=== PATIENT | male | born 1940 | race Caucasian/White ===

== ENCOUNTER → 2023-06-21 10:27 | Outpatient (REF) | payer MEDICARE, OTHER, SELFPAY ==
[2023-06-21 12:45] LABS: PSA, Total - Diagnostic 5.78 ng/ml (0.0-4.0)
== END ==
LOC: REG 10:27
PROVIDERS: ATTENDING PHYSICIAN Internal Medicine Geriatric Medicine
DX: J44.1 Chronic obstructive pulmonary disease with (acute) exacerbation (principal); J98.01 Acute bronchospasm; I48.91 Unspecified atrial fibrillation; J32.0 Chronic maxillary sinusitis; M10.9 Gout, unspecified; Z91.81 History of falling; R10.13 Epigastric pain; Z13.89 Encounter for screening for other disorder; R10.31 Right lower quadrant pain; I95.1 Orthostatic hypotension; R97.20 Elevated prostate specific antigen [PSA]
CPT/HCPCS: 36415; 84153

== ENCOUNTER → 2023-07-18 09:31 | Outpatient (REF) | payer MEDICARE, OTHER, SELFPAY | LOC: RAD 09:31 | PROVIDERS: ATTENDING PHYSICIAN Internal Medicine Geriatric Medicine | DX: R60.9 Edema, unspecified (principal); J44.1 Chronic obstructive pulmonary disease with (acute) exacerbation; J98.01 Acute bronchospasm; I48.91 Unspecified atrial fibrillation; J32.0 Chronic maxillary sinusitis; M10.9 Gout, unspecified; Z91.81 History of falling; R10.13 Epigastric pain; Z13.89 Encounter for screening for other disorder; R10.31 Right lower quadrant pain; I95.1 Orthostatic hypotension; R97.20 Elevated prostate specific antigen [PSA] | CPT/HCPCS: 93970 ==

== ENCOUNTER → 2023-08-28 09:26 | Outpatient (REF) | payer MEDICARE, OTHER, SELFPAY ==
[2023-08-28 10:07] LABS: % Basophils 0.6 % (0-2); % Eosinophils 2.5 % (0-6); % Immature Granulocytes 0.4 % (0-0.5); % Monocytes 9.5 % (1.7-9.3); Absolute Basophils 0.1 10^3/uL (0-0.2); Absolute Eosinophils 0.2 10^3/uL (0-0.7); Absolute Lymphocytes 1.2 10^3/uL (1.2-3.4); Absolute Monocytes 0.8 10^3/uL (0.1-0.6); Absolute Neutrophils 5.7 10^3/uL (1.4-6.5); Hematocrit 42.6 % (39.0-52.0); Hemoglobin 14.3 g/dL (13.0-18.0); Mean Corp Hgb Conc. 33.6 g/dL (33.0-37.0); Mean Corpuscular Hgb 31.1 pg (27.0-31.0); Mean Corpuscular Volume 92.6 fL (80.0-94.0); Mean Platelet Volume 10.1 fL (7.4-10.4); Nucleated Red Blood Cells % 0 % (-); Platelet Count 218 10^3/uL (130-400); Red Cell Dist. Width 15.5 % (11.5-14.5); White Blood Cell Count 7.9 10^3/uL (4.8-10.8)
[2023-08-28 10:23] LABS: NT-proBNP 234 pg/ml
[2023-08-28 11:04] LABS: ALT (SGPT) 38 U/L (0-50); AST (SGOT) 29 U/L (17-59); Albumin 3.9 g/dl (3.5-5.0); Alkaline Phosphatase 89 U/L (38-126); Blood Urea Nitrogen 22 mg/dl (9-20); Calcium 9.1 mg/dl (8.4-10.2); Carbon Dioxide 24 mmol/L (22-30); Chloride 106 mmol/L (98-107); Glucose 102 mg/dl (70-99); Potassium 4.5 mmol/L (3.5-5.1); Sodium 139 mmol/L (135-145); Total Bilirubin 0.7 mg/dl (0.2-1.3); Total Protein 6.1 g/dl (6.3-8.2); eGFR > 60.00
== END ==
LOC: REG 09:26
PROVIDERS: ATTENDING PHYSICIAN Internal Medicine Geriatric Medicine
DX: R60.0 Localized edema (principal)
CPT/HCPCS: 36415; 71046; 80053; 83880; 85025

== ENCOUNTER → 2023-09-05 08:27 | Outpatient (REF) | payer MEDICARE, OTHER, SELFPAY | LOC: RAD 08:27 | PROVIDERS: ATTENDING PHYSICIAN Internal Medicine Geriatric Medicine | DX: Z91.81 History of falling (principal); M79.10 Myalgia, unspecified site; J44.1 Chronic obstructive pulmonary disease with (acute) exacerbation; J98.01 Acute bronchospasm; I48.91 Unspecified atrial fibrillation; J32.0 Chronic maxillary sinusitis; M10.9 Gout, unspecified; R10.13 Epigastric pain; R10.31 Right lower quadrant pain; I95.1 Orthostatic hypotension; R97.20 Elevated prostate specific antigen [PSA]; R60.9 Edema, unspecified; Z13.89 Encounter for screening for other disorder; M54.50 Low back pain, unspecified | CPT/HCPCS: 72110 ==

== ENCOUNTER → 2023-09-14 09:28 | Outpatient (REF) | payer MEDICARE, OTHER, SELFPAY | LOC: RCS 09:28 | PROVIDERS: ATTENDING PHYSICIAN Internal Medicine Geriatric Medicine | DX: R60.0 Localized edema (principal) | CPT/HCPCS: 93306 ==

== ENCOUNTER → 2023-09-20 07:43 | Outpatient (REF) | payer MEDICARE, OTHER, SELFPAY | LOC: PAVMRI 07:43 | PROVIDERS: ATTENDING PHYSICIAN Internal Medicine Geriatric Medicine | DX: M51.36 Other intervertebral disc degeneration, lumbar region (principal); M54.50 Low back pain, unspecified | CPT/HCPCS: 72148 ==

== ENCOUNTER → 2024-01-28 06:45 | Outpatient (REF) | payer MEDICARE, OTHER, SELFPAY ==
[2024-01-28 07:39] LABS: % Basophils 0.5 % (0-2); % Eosinophils 1.3 % (0-6); % Immature Granulocytes 0.8 % (0-0.5); % Lymphocytes 11.8 % (20.5-51.1); % Monocytes 4.1 % (1.7-9.3); % Neutrophils 81.5 % (42.2-75.2); Absolute Basophils 0.1 10^3/uL (0-0.2); Absolute Eosinophils 0.1 10^3/uL (0-0.7); Absolute Immature Granulocytes 0.1 10^3/uL (0-0.05); Absolute Lymphocytes 1.1 10^3/uL (1.2-3.4); Absolute Monocytes 0.4 10^3/uL (0.1-0.6); Absolute Neutrophils 7.4 10^3/uL (1.4-6.5); Hematocrit 50.7 % (39.0-52.0); Mean Corp Hgb Conc. 33.5 g/dL (33.0-37.0); Mean Corpuscular Hgb 31.8 pg (27.0-31.0); Mean Corpuscular Volume 94.8 fL (80.0-94.0); Mean Platelet Volume 10.2 fL (7.4-10.4); Nucleated Red Blood Cells % 0 % (-); Platelet Count 195 10^3/uL (130-400); Red Blood Cell Count 5.35 10^6/uL (4.70-6.10); Red Cell Dist. Width 14.9 % (11.5-14.5); White Blood Cell Count 9.1 10^3/uL (4.8-10.8)
[2024-01-28 08:06] LABS: ALT (SGPT) 118 U/L (0-50); AST (SGOT) 54 U/L (17-59); Albumin 4.1 g/dl (3.5-5.0); Alkaline Phosphatase 75 U/L (38-126); Blood Urea Nitrogen 23 mg/dl (9-20); Calcium 9.3 mg/dl (8.4-10.2); Carbon Dioxide 28 mmol/L (22-30); Chloride 107 mmol/L (98-107); Glucose 129 mg/dl (70-99); HDL Cholesterol 66 mg/dl; LDL Cholesterol, Calculated 55 mg/dl; Potassium 4.4 mmol/L (3.5-5.1); Sodium 143 mmol/L (135-145); Total Bilirubin 0.5 mg/dl (0.2-1.3); Total Cholesterol 129 mg/dl (50-199); Total Protein 6.5 g/dl (6.3-8.2); Triglyceride 42 mg/dl (10-149); Very Low Density Lipoprotein 8 mg/dl (0-30); eGFR > 60.00
== END ==
LOC: REG 06:45
PROVIDERS: ATTENDING PHYSICIAN Internal Medicine Geriatric Medicine
DX: J44.1 Chronic obstructive pulmonary disease with (acute) exacerbation (principal); Z91.81 History of falling; M79.10 Myalgia, unspecified site; J98.01 Acute bronchospasm; I48.91 Unspecified atrial fibrillation; J32.0 Chronic maxillary sinusitis; M10.9 Gout, unspecified; R10.31 Right lower quadrant pain; I95.1 Orthostatic hypotension; Z13.89 Encounter for screening for other disorder; R97.20 Elevated prostate specific antigen [PSA]; R60.9 Edema, unspecified; M54.50 Low back pain, unspecified; E78.2 Mixed hyperlipidemia; C61 Malignant neoplasm of prostate
CPT/HCPCS: 36415; 80053; 80061; 84153; 85025

== ENCOUNTER → 2024-02-08 07:05 | Outpatient (REF) | payer MEDICARE, OTHER, SELFPAY ==
[2024-02-08 08:40] LABS: ALT (SGPT) 120 U/L (0-50); AST (SGOT) 70 U/L (17-59); GGTP 22 U/L (15-73)
== END ==
LOC: REG 07:05
PROVIDERS: ATTENDING PHYSICIAN Internal Medicine Geriatric Medicine
DX: R74.8 Abnormal levels of other serum enzymes (principal)
CPT/HCPCS: 36415; 82977; 84450; 84460

== ENCOUNTER → 2024-02-25 16:11 | Outpatient (REF) | payer MEDICARE, OTHER, SELFPAY ==
[2024-02-25 17:45] LABS: ALT (SGPT) 77 U/L (0-50); AST (SGOT) 34 U/L (17-59); GGTP 21 U/L (15-73)
== END ==
LOC: RAD 16:11
PROVIDERS: ATTENDING PHYSICIAN Internal Medicine Geriatric Medicine
DX: R74.8 Abnormal levels of other serum enzymes (principal)
CPT/HCPCS: 36415; 76700; 82977; 84450; 84460

== ENCOUNTER → 2024-06-05 06:27 | Outpatient (REF) | payer MEDICARE, OTHER, SELFPAY ==
[2024-06-05 08:01] LABS: ALT (SGPT) 47 U/L (0-50); AST (SGOT) 26 U/L (17-59); Albumin 3.6 g/dl (3.5-5.0); Alkaline Phosphatase 63 U/L (38-126); Blood Urea Nitrogen 22 mg/dl (9-20); Calcium 9.5 mg/dl (8.4-10.2); Carbon Dioxide 31 mmol/L (22-30); Chloride 106 mmol/L (98-107); GGTP 19 U/L (15-73); Glucose 120 mg/dl (70-99); Potassium 4.6 mmol/L (3.5-5.1); Sodium 143 mmol/L (135-145); Total Bilirubin 0.6 mg/dl (0.2-1.3); Total Protein 5.8 g/dl (6.3-8.2); eGFR > 60.00
== END ==
LOC: REG 06:27
PROVIDERS: ATTENDING PHYSICIAN Internal Medicine Geriatric Medicine
DX: R74.8 Abnormal levels of other serum enzymes (principal); I10 Essential (primary) hypertension; E78.2 Mixed hyperlipidemia
CPT/HCPCS: 36415; 80053; 82977

== ENCOUNTER → 2024-09-25 07:29 | Outpatient (REF) | payer MEDICARE, OTHER, SELFPAY | LOC: RCS 07:29 | PROVIDERS: ATTENDING PHYSICIAN Internal Medicine Cardiovascular Disease; FAMILY PHYSICIAN Internal Medicine Geriatric Medicine | DX: I48.0 Paroxysmal atrial fibrillation (principal) | CPT/HCPCS: 93306 ==

== ENCOUNTER → 2024-10-10 06:57 | Outpatient (REF) | payer MEDICARE, OTHER, SELFPAY | LOC: REG 06:57 | PROVIDERS: ATTENDING PHYSICIAN Internal Medicine Cardiovascular Disease | DX: I10 Essential (primary) hypertension (principal) | CPT/HCPCS: 36415; 83880 ==

== ENCOUNTER → 2024-10-16 08:44 | Outpatient (REF) | payer MEDICARE, OTHER, SELFPAY | LOC: RAD 08:44 | PROVIDERS: ATTENDING PHYSICIAN Internal Medicine Cardiovascular Disease; FAMILY PHYSICIAN Internal Medicine Geriatric Medicine | DX: I50.32 Chronic diastolic (congestive) heart failure (principal) | CPT/HCPCS: 78803; A9538 ==

== ENCOUNTER 2025-01-13 07:25 | Inpatient (IN) | payer MEDICARE, OTHER, SELFPAY ==
--- NOTE | 2024-12-17 14:46 | CM ---
Demographics: confirmed
Living situation: lives in basement apartment of daughters house, still drives
Support Person Post Operatively: Daughters
History of
VN: yes, not currently on service
SNF: No
Outpatient: No appointments made
Has patient purchased required equipment: yes
PCP: Sarah
Pharmacy: [facility]
Post Operative Discharge Plan: Patient does not have rides to PT and would benefit from home PT/OT. VN liaison made aware.
--- NOTE | 2024-12-17 14:49 | VNURNOTE ---
Chart reviewed, per chart, pt will be admitted morning of surgery. Rec'ed info from surg coordinator that pt will need PT, OT post op. Referral for [facility] entered in [facility]. Will follow up post op.
[2024-12-21 14:00] VITALS: BMI 29.9
[2024-12-21 14:53] VITALS: BMI 29.9
[2025-01-13] VITALS (13 sets, daily range): BP systolic 116–160; BP diastolic 52–90; PULSE 73; O2SAT 95; BMI 29.9
[2025-01-13] MEDS: TYLENOL 650 MG PO ×4 (08:30→20:14)
[2025-01-13] MEDS: CELEBREX 200 MG PO (08:30)
[2025-01-13] MEDS: NORMOSOL-R/PLASMALYTE-A 1000 IV ×2 (08:31→13:54)
--- NOTE | 2025-01-13 12:27 | W.PN.ORTHO ---
Today's Communication / Plan
-
d/c when stable
Assessment
.
Assessment:
NSVT
PAF
-moderate
-tele
-resume Xarelto 10mg hs
Asthma, mild and persistent.
COPD/hx tobacco.
Suspected obstructive sleep apnea.
Chronic right hemidiaphragm paralysis.
AGUILAR-chronic.
-incentive spirometry
-standing order nebs+inh
-IV Decadron for lung perfusion/inflammation/pain-minimize opioids to avoid respiratory suppression
BPH/urinary elksdkspr-Lprdwv-jgdfgva void
Plan
.
Surgery / Date: L JOHANNA Day 01/13/25
DVT Prophylaxis: Other (Xarelto)
Activity:
Out of bed.
PT/OT
Discharge Plan: Home w/ VN
Vital Signs and Labs
.
Vital Signs and Labs:
Temp Pulse Resp BP Pulse Ox
97.2 F 75 18 118/63 96
01/13/25 11:35 01/13/25 12:00 01/13/25 12:00 01/13/25 12:00 01/13/25 12:00
--- NOTE | 2025-01-13 12:42 | W.DS.TRANS ---
DC Summary - Carpenter Apprentice
-
Discharge Instructions:
Discharge Diagnosis/Procedures L hip OA s/p L JOHANNA w/ Dr Day 01/13/25
Diet Other diet
Additional Diets Diabetic carb controlled x1 week for wound
healing/infection prevention.
Adequate hydration, minimize opioids, and wear
TEDs stockings to prevent low blood pressure/
dizziness.
Activity As tolerated,With Walker
Driving Restrictions Not until seen by your Dr
Bathing Restrictions OK to Shower
Other Services PT,VN,OT
Wound Care Dressing to be removed 1 week post-surgery.
Instructions:
Stand-Alone Forms: Total Hip/Knee Replacement D/C
Changes to Home Medications: Yes
Discharge Medications:
DC Medications w/original date entered in [employer]
atorvastatin 40 mg tablet 40 mg PO HS High cholesterol 04/08/13
albuterol sulfate 90 mcg/actuation aerosol inhaler 1 puff inhalation R Q6HPRN PRN shortness of breath 08/03/21
Prevagen 10 mg PO DAILY 12/17/24
allopurinol 100 mg tablet 100 mg PO DAILY 12/17/24
ezetimibe 10 mg tablet 10 mg PO HS 12/17/24
famotidine 20 mg tablet 20 mg PO HS 12/17/24
fluticasone propionate 50 mcg/actuation nasal spray,suspension 1 spray intranasal PRN PRN congestion 12/17/24
ipratropium bromide 42 mcg (0.06 %) nasal spray 2 spray intranasal DAILY 12/17/24
metoprolol succinate 25 mg tablet,extended release 24 hr (Toprol XL) 25 mg PO DAILY 12/17/24
mupirocin 2 % topical ointment 1 applic intranasal BID #1 tube 12/17/24
omeprazole 20 mg tablet,delayed release 20 mg PO DAILYPRN PRN gerd 12/17/24
rivaroxaban 20 mg tablet (Xarelto) 20 mg PO QPM 12/17/24
Held on 01/13/25. Instructions: Resume on 01/16/25. TAKE 10MG NIGHTLY UNTIL 01/16/25-THEN RESUME 20MG NIGHTLY AND D/C 10MG DOSE
silodosin 4 mg capsule 4 mg PO QPM 12/17/24
tiotropium bromide 1.25 mcg/actuation mist for inhalation (Spiriva Respimat) 2 puff inhalation DAILY 12/17/24
dexamethasone 4 mg tablet 4 mg PO BID Anti-inflammatory #5 tabs 12/21/24
ondansetron HCl 4 mg tablet 4 mg PO Q6H PRN nausea and vomiting #30 tabs 12/21/24
oxycodone 5 mg tablet 5 - 10 mg (1 - 2 x 5 mg) PO Q6H PRN moderate-severe pain #30 tabs 12/21/24
acetaminophen 325 mg tablet (Tylenol) 650 mg (2 x 325 mg) PO QID #1 tab 01/13/25
docusate sodium 100 mg capsule (Colace) 100 mg PO BID stool softner #1 cap 01/13/25
magnesium hydroxide 400 mg/5 mL oral suspension (Milk of Magnesia) 30 ml PO HS PRN constipation #1 mL 01/13/25
sennosides 8.6 mg tablet (Senokot) 17.2 mg (2 x 8.6 mg) PO BID laxative #2 tabs 01/13/25
Home Medication Changes
mupirocin 2 % topical ointment 1 applic intranasal BID #1 tube 12/17/24
omeprazole 20 mg tablet,delayed release 20 mg PO DAILYPRN PRN gerd 12/17/24
rivaroxaban 20 mg tablet (Xarelto) 20 mg PO QPM 12/17/24
Held on 01/13/25. Instructions: Resume on 01/16/25. TAKE 10MG NIGHTLY UNTIL 01/16/25-THEN RESUME 20MG NIGHTLY AND D/C 10MG DOSE
silodosin 4 mg capsule 4 mg PO QPM 12/17/24
tiotropium bromide 1.25 mcg/actuation mist for inhalation (Spiriva Respimat) 2 puff inhalation DAILY 12/17/24
dexamethasone 4 mg tablet 4 mg PO BID Anti-inflammatory #5 tabs 12/21/24
ondansetron HCl 4 mg tablet 4 mg PO Q6H PRN nausea and vomiting #30 tabs 12/21/24
oxycodone 5 mg tablet 5 - 10 mg (1 - 2 x 5 mg) PO Q6H PRN moderate-severe pain #30 tabs 12/21/24
acetaminophen 325 mg tablet (Tylenol) 650 mg (2 x 325 mg) PO QID #1 tab 01/13/25
docusate sodium 100 mg capsule (Colace) 100 mg PO BID stool softner #1 cap 01/13/25
magnesium hydroxide 400 mg/5 mL oral suspension (Milk of Magnesia) 30 ml PO HS PRN constipation #1 mL 01/13/25
sennosides 8.6 mg tablet (Senokot) 17.2 mg (2 x 8.6 mg) PO BID laxative #2 tabs 01/13/25
Pending Results: No
[2025-01-13] MEDS: ROXICODONE 5 MG PO ×2 (13:06→21:33)
[2025-01-13] MEDS: FLOMAX 0.4 MG PO ×2 (13:07→17:00)
[2025-01-13] MEDS: DUONEB INH (15:15)
--- NOTE | 2025-01-13 15:40 | PTCARENOTE ---
Received patient from PACU around 1445 via bed in stable condition. Patient oriented to room. Left hip dressing intact. + movement + sensation to left LE. automobile rental representative in place. Patient with fall precautions, bracelet and magnet in place and
call hernandez in reach.
[2025-01-13] MEDS: ANCEF 5 IV (17:00)
[2025-01-13] MEDS: XARELTO 10 MG PO (17:00)
[2025-01-13] MEDS: DUONEB 3 ML INH (19:31)
[2025-01-13] MEDS: DECADRON 4 MG IV (20:14)
[2025-01-13] MEDS: COLACE 100 MG PO (20:14)
[2025-01-13] MEDS: BACTROBAN 2% OINTMENT 1 APPLIC NASAL (20:14)
[2025-01-13] MEDS: SENOKOT 17.2 MG PO (20:14)
[2025-01-13] MEDS: ZETIA 10 MG PO (21:30)
[2025-01-13] MEDS: NEURONTIN 300 MG PO (21:30)
[2025-01-13] MEDS: LIPITOR 40 MG PO (21:30)
[2025-01-13] MEDS: PEPCID 20 MG PO (21:30)
[2025-01-14] VITALS (8 sets, daily range): BP systolic 125–146; BP diastolic 60–66; PULSE 79; O2SAT 94
[2025-01-14] MEDS: TYLENOL PO ×3 (00:10→23:36)
[2025-01-14] MEDS: ANCEF 5 IV (01:05)
[2025-01-14] MEDS: TYLENOL 650 MG PO ×5 (01:07→20:30)
[2025-01-14] MEDS: DUONEB 3 ML INH (07:27)
[2025-01-14] MEDS: SPIRIVA RESPIMAT 2.5 MCG INH (07:27)
[2025-01-14] MEDS: TOPROL XL 25 MG PO (08:18)
[2025-01-14] MEDS: COLACE 100 MG PO ×2 (08:18→20:29)
[2025-01-14] MEDS: SENOKOT 17.2 MG PO ×2 (08:18→20:29)
[2025-01-14] MEDS: ZYLOPRIM 100 MG PO (08:18)
[2025-01-14] MEDS: DECADRON 4 MG IV ×2 (08:19→20:30)
[2025-01-14] MEDS: ROXICODONE 5 MG PO ×2 (08:19→20:31)
[2025-01-14] MEDS: BACTROBAN 2% OINTMENT 1 APPLIC NASAL ×2 (08:19→20:29)
--- NOTE | 2025-01-14 10:14 | CM ---
Addendum entered by Jyotsna Brock 01/14/25 14:06:
Patient has been accepted at [facility] under [facility] program, tomorrow 01/15/25, will need COVID testing completed. Pharmacy is [facility]
Report [phone]

Addendum entered by Jyotsna Brock 01/14/25 10:32:
Physical therapy are recommending skilled placement, left message for patient's daughter, Trisha.
Original Note:
Chart reviewed and manager rn case met with patient this am and patient is for discharge to home with daughter, patient has been set up with VN.
Plan; Home with [facility].
--- NOTE | 2025-01-14 10:49 | W.PN.ORTHO ---
Today's Communication / Plan
-
d/c to SNF
Assessment
.
Distal Motor Intact: Yes
Dressing:
Clean, dry and intact.
Assessment:
Ambulatory dysfunction/balance gait disturbance/cognitive deficits w/ impulsivity and failing to adher to hip precautions
-fall precautions in place
-will require SNF
NSVT
PAF
-moderate
-tele-HR irreg and elevated with activity prior to BB dose-currently NSR w/ controlled rate-patient asx-d/c neb
-resume Xarelto 10mg hs
Asthma, mild and persistent.
COPD/hx tobacco.
Suspected obstructive sleep apnea.
Chronic right hemidiaphragm paralysis.
AGUILAR-chronic.
-incentive spirometry
-standing order nebs+inh
-IV Decadron for lung perfusion/inflammation/pain-minimize opioids to avoid respiratory suppression
-O2 sats stable on RA
BPH/urinary retention-straight cath despite Flomax--dose increased + 10mg IV Lasix w/ Midodrine--monitor void
Plan
.
Surgery / Date: L JOHANNA Day 01/13/25
DVT Prophylaxis: Other (Xarelto)
Activity:
Out of bed.
PT/OT
Discharge Plan: SNF
Subjective
.
.:
Patient resting comfortably.
Vital Signs and Labs
.
Vital Signs and Labs:
Temp Pulse Resp BP Pulse Ox
98.6 F 67 16 138/62 99
01/14/25 03:07 01/14/25 07:33 01/14/25 07:33 01/14/25 03:07 01/14/25 07:33
Non-invasive Hgb result: 12.5
Physical Exam
-
HEENT: No pallor, cyanosis, or jaundice. Throat clear.
NECK: Supple. No JVD.
RESPIRATORY: Lungs clear to auscultation.
CVS: S1, S2 normal. RRR.� No murmur, rub or gallop.
ABDOMEN: Soft, non-tender. No distension. BS+/normal.
EXTREMITIES: strength equal, no calf pain with palpation
ZIPPER CUTTER: AOx3. BALANCE AND GAIT DYSFUNCTION-COGNITIVE DEFICITS
[2025-01-14] MEDS: FLOMAX 0.8 MG PO (11:43)
[2025-01-14] MEDS: LASIX 10 MG IV (11:44)
[2025-01-14] MEDS: XARELTO 10 MG PO (17:17)
[2025-01-14] MEDS: PEPCID 20 MG PO (22:31)
[2025-01-14] MEDS: NEURONTIN 300 MG PO (22:32)
[2025-01-14] MEDS: ZETIA 10 MG PO (22:32)
[2025-01-14] MEDS: LIPITOR 40 MG PO (22:32)
[2025-01-15 03:00] VITALS: BP 149/65
[2025-01-15] MEDS: TYLENOL PO ×2 (03:17→12:08)
[2025-01-15 05:48] LABS: COVID-19 Antigen Negative (Negative)
[2025-01-15 07:15] VITALS: BP 142/70
[2025-01-15] MEDS: SPIRIVA RESPIMAT 2.5 MCG 2 PUFF INH (07:31)
[2025-01-15] MEDS: COLACE 100 MG PO (07:45)
[2025-01-15] MEDS: FLOMAX 0.8 MG PO (07:45)
[2025-01-15] MEDS: SENOKOT 17.2 MG PO (07:45)
[2025-01-15] MEDS: TOPROL XL 25 MG PO (07:45)
[2025-01-15] MEDS: TYLENOL 650 MG PO (07:45)
[2025-01-15] MEDS: ZYLOPRIM 100 MG PO (07:45)
--- NOTE | 2025-01-15 08:04 | CM ---
Addendum entered by Jyotsna Brock 01/15/25 10:31:
12:30 tow picker by ambulance to [facility].
Original Note:
Patient has been accepted and there is a bed available at [facility] today will await medical clearance, patient will need COVID testing completed prior to discharge. Ambulance form and transfer sheet are on patient's chart.
Plan; Skilled placement at [facility] today.
[facility]
Report [phone]
[2025-01-15] MEDS: ROXICODONE 5 MG PO (10:17)
--- NOTE | 2025-01-15 10:53 | W.PN.ORTHO ---
Today's Communication / Plan
-
d/c
Assessment
.
Distal Motor Intact: Yes
Dressing:
Clean, dry and intact.
Assessment:
Ambulatory dysfunction/balance gait disturbance/cognitive deficits w/ impulsivity and failing to adhere to hip precautions
-fall precautions in place
-will require SNF
NSVT
PAF
-moderate
-tele-HR irreg and elevated with activity prior to BB dose-currently NSR w/ controlled rate-patient asx-d/c neb
-resume Xarelto 10mg hs
Asthma, mild and persistent.
COPD/hx tobacco.
Suspected obstructive sleep apnea.
Chronic right hemidiaphragm paralysis.
AGUILAR-chronic.
-incentive spirometry
-standing order nebs+inh
-IV Decadron for lung perfusion/inflammation/pain-minimize opioids to avoid respiratory suppression
-O2 sats stable on RA
BPH/urinary retention-straight cath despite Flomax--dose increased + 10mg IV Lasix w/ Midodrine--voiding well POD#3
Plan
.
Surgery / Date: L JOHANNA Day 01/13/25
DVT Prophylaxis: Other (Xarelto)
Activity:
Out of bed.
PT/OT
Discharge Plan: SNF
Subjective
.
.:
Patient resting comfortably.
Vital Signs and Labs
.
Vital Signs and Labs:
Temp Pulse Resp BP Pulse Ox
97.9 F 89 16 142/70 95
01/15/25 07:15 01/15/25 07:45 01/15/25 07:34 01/15/25 07:45 01/15/25 09:35
Non-invasive Hgb result: 12.5
Physical Exam
-
HEENT: No pallor, cyanosis, or jaundice. Throat clear.
NECK: Supple. No JVD.
RESPIRATORY: Lungs clear to auscultation.
CVS: S1, S2 normal. RRR.� No murmur, rub or gallop.
ABDOMEN: Soft, non-tender. No distension. BS+/normal.
EXTREMITIES: strength equal, no calf pain with palpation
TALENT COORDINATOR: AOx3. No focal deficits. warning analyst grossly intact
[2025-01-15 11:00] VITALS: BP 139/70
== END 2025-01-15 12:36 | DRG 470 ==
LOC: 2 SOUTH 07:25
PROVIDERS: Physician Assistant Medical; ADMITTING PHYSICIAN Orthopaedic Surgery; FAMILY PHYSICIAN Internal Medicine Geriatric Medicine; REFERRING PHYSICIAN Internal Medicine Cardiovascular Disease
PROC: 0SRB03A Replacement of Left Hip Joint with Ceramic Synthetic Substitute, Uncemented, Open Approach (ICD-10-PCS; 2025-01-14)
DX: M16.12 Unilateral primary osteoarthritis, left hip (principal); I47.20 Ventricular tachycardia, unspecified; Z11.52 Encounter for screening for COVID-19; E78.00 Pure hypercholesterolemia, unspecified; I10 Essential (primary) hypertension; I25.10 Atherosclerotic heart disease of native coronary artery without angina pectoris; I48.0 Paroxysmal atrial fibrillation; I49.3 Ventricular premature depolarization; R60.9 Edema, unspecified; J98.6 Disorders of diaphragm; K21.9 Gastro-esophageal reflux disease without esophagitis; K57.30 Diverticulosis of large intestine without perforation or abscess without bleeding; K76.0 Fatty (change of) liver, not elsewhere classified; Z86.73 Personal history of transient ischemic attack (TIA), and cerebral infarction without residual deficits; Z85.828 Personal history of other malignant neoplasm of skin; N40.1 Benign prostatic hyperplasia with lower urinary tract symptoms; J32.9 Chronic sinusitis, unspecified; H91.93 Unspecified hearing loss, bilateral; R73.03 Prediabetes; Z87.891 Personal history of nicotine dependence; J44.89 Other specified chronic obstructive pulmonary disease; J45.30 Mild persistent asthma, uncomplicated; R33.8 Other retention of urine; Z59.82 Transportation insecurity; Z96.653 Presence of artificial knee joint, bilateral; Z98.41 Cataract extraction status, right eye; Z98.42 Cataract extraction status, left eye
CPT/HCPCS: 73502; 87070; 87811; 93005; 94640; 97116; 97163; 97166; 97530; 97535; C1776

== ENCOUNTER 2025-01-26 16:49 | Inpatient (IN) | payer MEDICARE, OTHER, SELFPAY ==
[2025-01-26] VITALS (7 sets, daily range): BP systolic 114–148; BP diastolic 67–118; BMI 30.3
[2025-01-26 12:11] LABS: Hematocrit 32.1 % (39.0-52.0); Hemoglobin 10.6 g/dL (13.0-18.0); Mean Corp Hgb Conc. 33.0 g/dL (33.0-37.0); Mean Corpuscular Volume 94.4 fL (80.0-94.0); Nucleated Red Blood Cells % 0 % (-); Platelet Count 304 10^3/uL (130-400); Red Cell Dist. Width 16.2 % (11.5-14.5)
[2025-01-26 12:20] LABS: ALT (SGPT) 21 U/L (0-50); AST (SGOT) 23 U/L (17-59); Albumin 3.2 g/dl (3.5-5.0); Alkaline Phosphatase 79 U/L (38-126); Blood Urea Nitrogen 28 mg/dl (9-20); Calcium 8.4 mg/dl (8.4-10.2); Carbon Dioxide 24 mmol/L (22-30); Chloride 102 mmol/L (98-107); Glucose 122 mg/dl (70-99); Potassium 3.9 mmol/L (3.5-5.1); Sodium 132 mmol/L (135-145); Total Protein 5.6 g/dl (6.3-8.2); eGFR > 60.00
[2025-01-26 12:27] LABS: INR 1.84; PT 21.4 Sec (11.4-14.6)
[2025-01-26 12:32] LABS: Troponin I 0.016 ng/ml
--- NOTE | 2025-01-26 15:11 | ED.GENMED ---
History of Present Illness
General
Chief Complaint: Swelling
Time Seen by Provider: 01/26/25 14:27
History of Present Illness
History of Present Illness:
84-year-old male with history of A-fib on Xarelto, hypertension, hyperlipidemia presenting to the emergency department for worsening left lower extremity swelling. Patient is status post left hip replacement by Dr. Day on 01/13. Patient did go
to custodial facility and then was discharged to home where his daughters have been helping him. However in the past few days has had difficulty ambulating secondary to pain and swelling. Notes a lot of weeping and drainage of fluid as well
as pain distally with redness. Notes minimal pain at the incision site. Denies any known fever. He is not on any diuretics. Denies chest pain. Notes chronic dyspnea, no acute component. Denies additional acute medical complaints
Past History
Past History
ED Past Medical History: Asthma, COPD, HTN and Hypercholesterolemia
ED Past Surgical History: Orthopedic and Other (Hernia)
Social History
Tobacco: Former smoker
Alcohol: Occasional
Drug: None
Personal:
Living: with family
Employment: Retired
Family History
Family History: Diabetes
Phy Exam
Physical Exam
Physical Exam:
General: Well-appearing, no clinical signs of dehydration, nontoxic and in no acute distress
HEENT: protecting airway
Neck: appears supple
CV: Normal heart rate, regular rhythm
Resp: No accessory muscle use, no increased work of breathing, lungs clear to auscultation bilaterally
Abd: No distention
Extremities: Bilateral lower extremity edema with left greater than right. Scattered ecchymosis to the left leg with swelling from the thigh down, pitting 3+. Incision is clean/dry/intact without any surrounding erythema or drainage. Distal to
the knee, diffuse erythema with concern of cellulitis with weeping of yellow fluid. Distal sensation intact. Skin tear at the lateral aspect of the heredia with weeping
Neuro: alert, no focal neurologic deficit
: deferred
Rectal: deferred
Psych: Normal affect
Skin: Intact
Scores
Heart Failure Risk
Heart Failure Risk Score: Yes
History of Stroke or TIA: No
History of intubation for respiratory distress: No
Heart rate on ED arrival >/= 110: No
SaO2 <90% on arrival on room air: No
HR >/=110 during 3min walk test (or too ill to perform test): No
ECG has acute ischemic changes: No
Urea >/=12mmol/L (BUN 33.6mg/dL): No
Serum CO2>/=35mmol/L: No
Troponin I or T elevated to [place] Level (0.4mg/dL): No
NT-proBNP >/=5,000ng/L (5,000pg/ml): No
HF Risk Score: 0
Admission Status: LOW RISK 2.8% Consider discharge to home with f/u visit to PCP/Pipe Coverer Helper
Course
Orders/Labs/Results
Orders:
Orders
01/26/25 11:45
Electrocardiogram (*1) Urgent
Reason for Study: Shortness of Breath
EKG- Treatment ONCE
CR Chest - 2 Views Urgent
Comment:
Reason For Exam: SOB
US Periph Venous LOWER Ext Prosper Urgent
Reason For Exam: swelling, recent surgery
01/26/25 11:51
C-Reactive Protein Routine
Comment: ADD ON
Complete Blood Count/With Diff Urgent
Comprehensive Metabolic Panel Urgent
Erythrocyte Sed Rate Urgent
Comment: ADD ON
NT-proBNP Urgent
Prothrombin Time Urgent
Troponin I Urgent
01/26/25 15:09
Furosemide [Lasix] 40 mg IV NOW STA
01/26/25 15:13
Add On- LAB Routine
Tests Added?: sed rate and crp please
01/26/25 15:44
Admit/Transfer Patient As Directed
Co-Sign Provider:
Level of Care: Inpatient admission
Assign to:: Telemetry
Physician / Group: Gustavo
Diagnosis: LLE Cellulitis, Heart Failure
Reason for Telemetry: Acute Heart Failure
Date to Stop Telemetry: 01/29/25
Time to Stop Telemetry: 11:00
Reason for Hospitalization: IV abx, IV diuretics
Expected length of stay greater than two midnights?: Yes
ELOS- Estimated Length of Stay in days: 3
I certify the patient meets the requirements for IP care: Yes
01/26/25 15:46
PRN Pain Medication Management As Directed
May give lesser potent ordered pain med per pt: Yes
preference::
Protocol:: Medication orders for pain may be administered in a
manner that supports deferring to patient preference
when the pt is:
- Requesting an ordered lesser potent pain medication.
Least to most potent pain medications are defined
as: acetaminophen < NSAID < tramadol < opioids
(morphine, oxycodone, hydromorphone).
- Requesting a lesser dose of the same medication IF
ORDERED.
- Requesting a less intrusive route of administration
if both routes are prescribed by the provider (PO <
IV).
01/26/25 15:47
Vancomycin [Vancocin] 2,000 mg 0.9% Sodium Chloride 500 ml [Nss] 500 ml IV NOW
01/26/25 15:49
Code Status As Directed
Resuscitation Status: Full Code
01/29/25 11:00
DC Protocol for Telemetry ONCE
Abnormal Lab Results
01/26/25
11:51
WBC 22.6 H 10^3/uL
(4.8-10.8)
RBC 3.40 L 10^6/uL
(4.70-6.10)
Hgb 10.6 L g/dL
(13.0-18.0)
Hct 32.1 L %
(39.0-52.0)
MCV 94.4 H fL
(80.0-94.0)
MCH 31.2 H pg
(27.0-31.0)
RDW 16.2 H %
(11.5-14.5)
Abs Immat Gran (auto) 0.3 H 10^3/uL
(0-0.05)
Absolute Neuts (auto) 20.0 H 10^3/uL
(1.4-6.5)
Absolute Lymphs (auto) 0.9 L 10^3/uL
(1.2-3.4)
Absolute Monos (auto) 1.2 H 10^3/uL
(0.1-0.6)
Immature Gran % 1.1 H %
(0-0.5)
Neutrophils % 88.6 H %
(42.2-75.2)
Lymphocytes % 4.0 L %
(20.5-51.1)
PT 21.4 H Sec
(11.4-14.6)
Sodium 132 L mmol/L
(135-145)
BUN 28 H mg/dl
(9-20)
Glucose 122 H mg/dl
(70-99)
Total Bilirubin 2.1 H mg/dl
(0.2-1.3)
Total Protein 5.6 L g/dl
(6.3-8.2)
Albumin 3.2 L g/dl
(3.5-5.0)
01/26/25 11:51
01/26/25 11:51
Vital Signs
Initial and Last Documented VS:
Initial Vital Signs
Temp Pulse Resp BP Pulse Ox
98.8 F 85 17 114/68 99
01/26/25 11:43 01/26/25 11:43 01/26/25 11:43 01/26/25 11:43 01/26/25 11:43
Last Documented Vital Signs
Temp Pulse Resp BP Pulse Ox
98.8 F 93 18 144/77 97
01/26/25 11:43 01/26/25 14:47 01/26/25 14:47 01/26/25 14:47 01/26/25 15:16
MDM/Problems Addressed
MDM/Problems Addressed:
84-year-old male with history of A-fib on Xarelto, hypertension, hyperlipidemia presenting to the emergency department for lower extremity swelling after hip replacement 01/13. Vital signs on arrival are normal.
On exam, patient is resting comfortably, no acute distress. Markedly abnormal examination of the left lower extremity. Physical exam appears consistent with dependent edema with component of cellulitis, diffuse erythema at the heredia region,
circumferential with significant weeping of fluid. No present neurovascular compromise. Lower suspicion for infection to the hip joint with incision clean/dry/intact, no erythema or drainage, no tenderness to palpation. Patient had labs obtained
prior to my assessment with significant leukocytosis of 22, again in keeping with underlying infection and cellulitis. DVT ultrasound also obtained prior to my assessment, negative. Patient notes difficulty ambulating at home secondary to the
swelling and the pain. At this time feel patient warrants admission for antibiotics and diuretics for swelling. Did discuss with orthopedics who will come and evaluate.
*Pulse Oximetry
SaO2: 97
Oxygen Mode of Delivery: Room air
Patient hypoxic: no
*Critical Care Note
Total Time (30-74mins, 75-104mins- exclusive of procedures): Not Applicable
ED Attending Note
-
Portions of this chart may have been created with voice recognition software.� Occasional wrong word or��sound alike� substitutions may have occurred due to the inherent limitations of voice recognition software.
Discharge Plan
Departure
Patient Disposition: Admit
Date of Disposition: 01/26/25
Time of Disposition: 15:17
Presentation/result/management discussed w/ accepting MD/DO: Hospitalist
Patient with high blood pressure during this ER visit?: No
Condition: Fair
Discharge Problem:
Cellulitis of left leg, Edema of left lower leg
Prescriptions:
No Action
atorvastatin 40 MG tablet
40 mg PO HS
albuterol sulfate [Ventolin HFA] 1 PUFF HFA aerosol inhaler
1 puff inhalation R Q6HPRN PRN (Reason: shortness of breath)
allopurinol 100 mg Tablet
100 mg PO DAILY
famotidine 20 mg Tablet
20 mg PO HS
metoprolol succinate [Toprol XL] 25 mg Tablet Extended Release 24 Hr
25 mg PO DAILY
ipratropium bromide 42 mcg (0.06 %) [place],Non-Aerosol
2 spray INTRANASAL DAILYPRN PRN (Reason: ALLERGIES)
fluticasone propionate 50 mcg/actuation [place],Suspension
1 spray INTRANASAL DAILYPRN PRN (Reason: congestion)
ezetimibe 10 mg Tablet
10 mg PO HS
silodosin 4 mg Capsule
4 mg PO QPM
Spiriva Respimat 1.25 mcg/actuation Mist
2 puff INHALATION R DAILY
Xarelto 20 mg Tablet
20 mg PO HS
docusate sodium [Colace] 100 mg capsule
100 mg PO BIDPRN PRN (Reason: CONSTIPATION)
oxycodone 5 mg tablet
5 mg PO Q6H PRN (Reason: SEVERE PAIN)
acetaminophen [Tylenol Extra Strength] 500 mg Tablet
1,000 mg PO Q6HPRN PRN (Reason: MILD PAIN)
Referrals:
Jameel Smith MD [Family Provider, Internal Medicine]
Interventions
Interventions:
*General Assessment Last Done: 01/26/25 11:44
*Neglect/Abuse Screening Last Done: 01/26/25 11:44
*ED COVID-19 Vaccine History Last Done: 01/26/25 11:44
*ED Influenza Vaccine History Last Done: 01/26/25 11:44
[facility] Risk Assessment Tool Last Done: 01/26/25 14:46
*Risk Screen - Suicide (C-SSRS) Last Done: 01/26/25 11:44
ED- Cardiac Assessment Last Done: 01/26/25 14:46
ED- Pulmonary Assessment Last Done: 01/26/25 14:46
ED-Skin Assessment Last Done: 01/26/25 14:46
Discharge Date and Time
Print Language: IRANIAN
--- NOTE | 2025-01-26 15:23 | HPS.HSE ---
Addendum entered and electronically signed by Caitie Chen MD 01/26/25 17:21:
This is an addendum to H&P written by Mary Jurado on 01/26/2025. �Patient seen and examined independently with PA.
84-year-old male past medical history of osteoarthritis, chronic amatory dysfunction, nonsustained ventricular tachycardia, paroxysmal atrial fibrillation, moderate aortic stenosis, asthma, COPD, suspected obstructive sleep apnea, chronic right
hemidiaphragm paralysis, BPH, urinary retention, presenting for worse left lower extremity swelling with weeping and redness and also with decreased ambulation. �Also right lower extremity swelling. �Also scrotal swelling. �Shortness of breath with
activity. �Recently underwent left hip replacement by Dr. Day on 01/13. �No fever.
Vital signs unremarkable.
Labs show leukocytosis of 22. �Hemoglobin 10.6 from 16.1. �Postop hemoglobin 12.5. �Cardiac BNP 1100.
Venous ultrasound shows no evidence of DVT. �Chest x-ray shows no acute cardiopulmonary process.
Patient with acute HFpEF exacerbation as well as cellulitis of left lower extremity.
Cefazolin. �Orthopedics to see patient. �40 IV Lasix twice daily.
Worsening anemia likely from postoperative blood loss/dilutional from heart failure. �Continue to monitor.
Original Note:
Family Physician
-
Family Physician: Jameel Smith
Chief Complaint
-
Left Lower Extremity Redness and Swelling
History of Present Illness
Patient is an 84 y/o male past medical history of paroxysmal atrial fibrillation, hypertension, hyperlipidemia, prediabetes and asthma who presents with increasing swelling and redness of the left lower extremity. Patient underwent a left total hip
replacement on January 14. Patient reports since the surgery this left leg and been getting much more swollen. He notes it is now weeping significantly and is starting to turn red. He notes is right leg is slightly more swollen than baseline,
and notes his scrotum is very swollen. He reports slight dyspnea on exertion. He denies fevers, sweats or chills.
Medical History
Past Medical History
Past Medical History: Reports Other
Additional Past Medical History:
Coronary Atherosclerosis
Paroxysmal Atrial Fibrillation
Hypertension
Hyperlipidemia
Diabetes Mellitus, Type II
Asthma / COPD
Fatty Liver Disease
BPH
Spinal Stenosis
Past Surgical History: Reports Other
Additional Past Surgical History:
Bilateral Total Knee Replacements (2010)
Bilateral Hip Replacements (Right 2013, Left 2024)
Social History
Tobacco: Former Smoker
Alcohol: Occasional
Family History
Family History: Not pertinent
Allergies / Home Medications
Allergies reflects when Allergies were last updated in [facility].
Home Medications with original date entered in [facility]
Allergy/Medication List:
Allergies
Allergy/AdvReac Type Severity Reaction Status Date / Time
No Known Allergies Allergy Verified 01/26/25 11:44
Home Medications
atorvastatin 40 mg tablet 40 mg PO HS High cholesterol 04/08/13
albuterol sulfate 90 mcg/actuation aerosol inhaler (Ventolin HFA) 1 puff inhalation R Q6HPRN PRN shortness of breath 08/03/21
allopurinol 100 mg tablet 100 mg PO DAILY 12/17/24
ezetimibe 10 mg tablet 10 mg PO HS High Cholesterol 12/17/24
famotidine 20 mg tablet 20 mg PO HS Gastrointestinal Issue 12/17/24
fluticasone propionate 50 mcg/actuation nasal spray,suspension 1 spray intranasal DAILYPRN PRN congestion 12/17/24
ipratropium bromide 42 mcg (0.06 %) nasal spray 2 spray intranasal DAILYPRN PRN ALLERGIES 12/17/24
metoprolol succinate 25 mg tablet,extended release 24 hr (Toprol XL) 25 mg PO DAILY Heart Disease/Condition 12/17/24
silodosin 4 mg capsule 4 mg PO QPM Urinary Issue 12/17/24
tiotropium bromide 1.25 mcg/actuation mist for inhalation (Spiriva Respimat) 2 puff inhalation R DAILY Lung/Breathing Issues 12/17/24
acetaminophen 500 mg tablet (Tylenol Extra Strength) 1,000 mg PO Q6HPRN PRN MILD PAIN 01/26/25
docusate sodium 100 mg capsule (Colace) 100 mg PO BIDPRN PRN CONSTIPATION 01/26/25
oxycodone 5 mg tablet 5 mg PO Q6H PRN SEVERE PAIN 01/26/25
rivaroxaban 20 mg tablet (Xarelto) 20 mg PO HS Blood Clot Prevention/Tx 01/26/25
Review of Systems
-
A 12 point ROS was completed and negative except as noted: Yes
Constitutional: Denies Fever
Respiratory: Reports Trouble Breathing; Denies Cough
Cardiac: Denies Chest Pain or Palpitations
Physical Exam
Vital Signs
Vital Signs
Temp Pulse Resp BP Pulse Ox
98.8 F 93 18 144/77 97
01/26/25 11:43 01/26/25 14:47 01/26/25 14:47 01/26/25 14:47 01/26/25 15:16
Physical Exam
General: Comfortable and Conversant
HEENT: Anicteric and Moist mucous membranes; No Oxygen
Respiratory: Clear and Non Labored Respirations; No Rales
Cardiac: S1/S2 and Regular Rhythm
GI: Soft and Non Tender
Genito-urinary: Other (Scrotal swelling)
Musculoskeletal: No Clubbing, No Cyanosis and Other (+4 edema LLE, +2 edema RLE)
Skin: Other (LLE with moderate erythema from the below the knee to the ankle with large amount of serosanginous weeping, and scattered areas of ecchymosis; Left hip incision site without evidence of infection)
Neuro: Awake, Alert, Oriented and Nonfocal/grossly intact
Psych: Calm
Laboratory Results
-
01/26/25 11:51
01/26/25 11:51
Laboratory Results
PT 21.4 Sec (11.4-14.6) H 01/26/25 11:51
INR 1.84 01/26/25 11:51
Total Bilirubin 2.1 mg/dl (0.2-1.3) H 01/26/25 11:51
AST 23 U/L (17-59) 01/26/25 11:51
ALT 21 U/L (0-50) 01/26/25 11:51
Alkaline Phosphatase 79 U/L (38-126) 01/26/25 11:51
Troponin I 0.016 ng/ml 01/26/25 11:51
Data Reviewed
-
Lab Data: Labs Reviewed by me
Old Records: Reviewed
Impression/Plan
-
Acute HFpEF
-Consult Cardiology
-Echo Sep 2024: Normal ventricular size and function with EF 55 to 60%. Moderate aortic stenosis with mild aortic regurgitation
-Start Lasix 40mg IV BID
-Monitor Is&Os and Daily Weights
Left Lower Extremity Cellulitis
-Continue Ancef
Acute Post-Op Blood Loss Anemia, suspect component of dilution in setting of heart failure
-Trend serial Hgb
Hyponatremia, mild, suspect hypervolemic in nature
-Continue fluid restriction
Paroxysmal Atrial Fibrillation
-Continue Xarelto for anticoagulation
-Continue metoprolol for rate control
Essential Hypertension
-Continue metoprolol
Hyperlipidemia
-Continue atorvastatin and ezetimibe
Diabetes Mellitus, Type II
-Hgba1c 6.4
-Continue diabetic diet
Asthma / COPD
-Continue Spiriva
DVT Proph: Xarelto
Code Status: Full Code
[2025-01-26] MEDS: LASIX 40 MG IV ×2 (15:58→22:03)
[2025-01-26 16:05] LABS: C-Reactive Protein 81.90 mg/L (0.0-10.00)
[2025-01-26] MEDS: VANCOCIN 540 MG IV (16:13)
--- NOTE | 2025-01-26 16:42 | CON.ORTHO ---
Consultation
-
Date/Time Consultation Requested: Feb 04
Date/Time Consultation Performed: Feb 04
Requesting Provider: CLAYTON Abdi
Performing Provider: To Good
Reason for Consultation: LLE cellulitis s/p Left JOHANNA
Consultation - Orthopedics
History
History of Present Illness:
Patient is an 84 y/o male PMH of PAF (on Xarelto), hypertension, hyperlipidemia, prediabetes and asthma who presents with increasing swelling and redness of the left lower extremity. Patient underwent a left total hip replacement on 13 January
([facility]). Patient reports since the surgery this left leg and been getting much more swollen. He notes it is now weeping significantly and is starting to turn red. He notes is right leg is slightly more swollen than baseline. He reports slight
dyspnea on exertion. He denies fevers, sweats or chills. We have been requested in consult given his recent Left JOHANNA. Of note he has no complaints with regards to the Left hip. He has been started on Vanco. Doppler was negative for DVT
Past Medical History:
Coronary Atherosclerosis
Paroxysmal Atrial Fibrillation
Hypertension
Hyperlipidemia
Diabetes Mellitus, Type II
Asthma / COPD
Fatty Liver Disease
BPH
Spinal Stenosis
Past Surgical History:
Bilateral Total Knee Replacements (2010)
Bilateral Hip Replacements (Right 2013, Left 2024)
Social History:
Tobacco: Former Smoker
Alcohol: Occasional
Family History:
Family History: Not pertinent
ROS:
12 point negative except those mentioned in the HPI
Allergies / Home Medications
Allergy/AdvReac Type Severity Reaction Status Date / Time
No Known Allergies Allergy Verified 01/26/25 11:44
�Medication �Instructions �Recorded
atorvastatin 40 mg tablet 40 mg PO HS High cholesterol 04/08/13
albuterol sulfate 90 mcg/actuation 1 puff inhalation R Q6HPRN PRN 08/03/21
aerosol inhaler (Ventolin HFA) shortness of breath
allopurinol 100 mg tablet 100 mg PO DAILY 12/17/24
ezetimibe 10 mg tablet 10 mg PO HS High Cholesterol 12/17/24
famotidine 20 mg tablet 20 mg PO HS Gastrointestinal Issue 12/17/24
fluticasone propionate 50 1 spray intranasal DAILYPRN PRN 12/17/24
mcg/actuation nasal congestion
spray,suspension
ipratropium bromide 42 mcg (0.06 2 spray intranasal DAILYPRN PRN 12/17/24
%) nasal spray ALLERGIES
metoprolol succinate 25 mg 25 mg PO DAILY Heart 12/17/24
tablet,extended release 24 hr Disease/Condition
(Toprol XL)
silodosin 4 mg capsule 4 mg PO QPM Urinary Issue 12/17/24
tiotropium bromide 1.25 2 puff inhalation R DAILY 12/17/24
mcg/actuation mist for inhalation Lung/Breathing Issues
(Spiriva Respimat)
acetaminophen 500 mg tablet 1,000 mg PO Q6HPRN PRN MILD PAIN 01/26/25
(Tylenol Extra Strength)
docusate sodium 100 mg capsule 100 mg PO BIDPRN PRN CONSTIPATION 01/26/25
(Colace)
oxycodone 5 mg tablet 5 mg PO Q6H PRN SEVERE PAIN 01/26/25
rivaroxaban 20 mg tablet (Xarelto) 20 mg PO HS Blood Clot 01/26/25
Prevention/Tx
Vital Signs / Lab Results
Temp Pulse Resp BP Pulse Ox
98.8 F 95 20 129/79 98
01/26/25 11:43 01/26/25 15:58 01/26/25 15:56 01/26/25 15:58 01/26/25 15:56
01/26/25 11:51
01/26/25 11:51
Assessment / Plan
PE: [facility] ED. LEFT hip incision looks great. A bit ecchymotic. Absolutely no signs of infection. ROM of the hip unrestricted and with essentially no pain. His LLE is moderately edematous from the proximal calf to the foot. generalized erythema.
There is a dressed wound/blister anterolateral with a small skin tear There is some mild mottling. Calf soft, but not tender. Scar over the anterior left knee from previous TKA. DNVI LLE
Afeb
WBC 22.6
CRP 81.9
Diagnostics:
Doppler US LLE negative for DVT
Impression: LLE cellulitis. Status post LEFT JOHANNA 13 Jan 2025
Plan: I have zero concern for his left hip. He will continue with THPs, but may work with PT/OT, WBAT on a walker, if deemed safe and appropriate with the primary/cards team. Patient has been seen by cardiology. Currently on IV Vanco, which I am in
agreement with based on his clinical exam findings. Continue treatment plan per the primary team/consultants. Orthopaedics will follow during this admission, but again, this assumed LLE cellulitis does NOT appear, at this time, to involve his Left
JOHANNA. Will follow.
--- NOTE | 2025-01-26 16:52 | CON.CAR ---
Addendum entered and electronically signed by Angelo Garcia MD 01/26/25 17:40:
I saw and examined the patient.
The Planning Rn's note was reviewed and I agree with the note.
Comment:
GEN: No distress, awake, Ox3
HEENT: supple, anicteric, mmm
LUNGS: CTA, no wheezes/rales
CV: Irreg, S1/S2, 1/6 syst LSB, no murmur
ABD: soft, BS+, NT/ND
EXT: ++ edema
NEURO: Gross non-focal
SKIN: Marked erythema left lower extremity
Plan:
84-year-old male with past medical history of paroxysmal atrial fibrillation, moderate aortic stenosis, chronic lower extremity edema, history of DVT, hypertension, hyperlipidemia presents with marked lower extremity edema and erythema of the left
lower leg 12 days status post left total hip replacement. Over the past week or so he has had increased bilateral lower extremity [place], scrotal edema and now wounds on his left leg which are weeping. He also noticed some increased shortness of
breath. proBNP was elevated at 1130. Troponin is normal. Lower extremity Dopplers reveal no DVT
He presents with multifactorial dyspnea and edema. He does have acute on chronic heart failure with preserved ejection fraction in the setting of moderate aortic stenosis.
His proBNP is elevated and we will start IV diuretic, Lasix 40 mg IV twice daily. Follow creatinine and hyponatremia.
Continue antibiotics for cellulitis. He does have elevated white blood cell count and elevated CRP. Wound care and evaluation
He remains in sinus rhythm. Continue Toprol and Xarelto for his paroxysmal atrial fibrillation.
Troponin is normal
Original Note:
Consultation
Consultation Request
Date/Time Consultation Requested: 01/26/2025
Date/Time Consultation Performed: 01/26/2025
Requesting Provider: Mary Abdi PA-C
Performing Provider: Shirley Carrillo PA-C for Dr. Garcia
Reason for Consultation: Heart failure
Medical History
-
History of Present Illness:
Patient is an 84 y/o male past medical history of paroxysmal atrial fibrillation, aortic stenosis, hypertension, hyperlipidemia, chronic lower extremity edema, history of DVT on chronic anticoagulation with Xarelto, chronic right hemidiaphragm
paralysis, BPH with urinary retention, prediabetes and COPD/asthma who presents 01/26/2025 with worsening bilateral lower extremity edema and weeping/redness of left lower extremity. Patient recently underwent left total hip replacement on January
with Dr. Day. He was discharged to [facility] facility. Over the last 2 weeks he has noted worsening bilateral lower extremity edema, scrotal edema and new weeping/redness of left lower extremity which was like of hip replacement. He
also noted worsening shortness of breath and balance issues prompting him to return to emergency department. Chest x-ray showed no acute cardiopulmonary abnormality. EKG showed sinus tachycardia with PACs and incomplete right bundle branch block.
Troponin 0.016. Lower extremity venous Doppler showed no evidence of DVT bilaterally. Noted of elevated white count of 22.6. proBNP of 1130. Low total protein and albumin 5.6/3.2
Past medical history:
Paroxysmal atrial fibrillation
Aortic stenosis
Hypertension
Hyperlipidemia
Chronic lower extremity edema
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
Chronic right hemidiaphragm paralysis
BPH with urinary retention
Prediabetes
COPD/asthma
Fatty liver disease
Spinal stenosis
Past Medical History
Past Medical History: Other (See HPI)
Past Surgical History: Orthopedic (Bilateral knee replacements 2010, right hip replacement 2013, left hip replacement January 14, 2025, carpal tunnel release, surgery on big toe, remote history of hand surgery) and Other (Hernia repair)
Social History
Tobacco: Former Smoker
Alcohol: Occasional
Drug: None
Living: With Family (Daughter)
Employment: Retired
Family History
Family History: Other (Father with lung cancer.)
Allergies / Home Medications
Allergy/AdvReac Type Severity Reaction Status Date / Time
No Known Allergies Allergy Verified 01/26/25 11:44
�Medication �Instructions �Recorded �Confirmed �Type
atorvastatin 40 mg tablet 40 mg PO HS High cholesterol 04/08/13 01/26/25 History
albuterol sulfate 90 mcg/actuation 1 puff inhalation R Q6HPRN PRN 08/03/21 01/26/25 History
aerosol inhaler (Ventolin HFA) shortness of breath
allopurinol 100 mg tablet 100 mg PO DAILY 12/17/24 01/26/25 History
ezetimibe 10 mg tablet 10 mg PO HS High Cholesterol 12/17/24 01/26/25 History
famotidine 20 mg tablet 20 mg PO HS Gastrointestinal Issue 12/17/24 01/26/25 History
fluticasone propionate 50 1 spray intranasal DAILYPRN PRN 12/17/24 01/26/25 History
mcg/actuation nasal congestion
spray,suspension
ipratropium bromide 42 mcg (0.06 2 spray intranasal DAILYPRN PRN 12/17/24 01/26/25 History
%) nasal spray ALLERGIES
metoprolol succinate 25 mg 25 mg PO DAILY Heart 12/17/24 01/26/25 History
tablet,extended release 24 hr Disease/Condition
(Toprol XL)
silodosin 4 mg capsule 4 mg PO QPM Urinary Issue 12/17/24 01/26/25 History
tiotropium bromide 1.25 2 puff inhalation R DAILY 12/17/24 01/26/25 History
mcg/actuation mist for inhalation Lung/Breathing Issues
(Spiriva Respimat)
acetaminophen 500 mg tablet 1,000 mg PO Q6HPRN PRN MILD PAIN 01/26/25 01/26/25 History
(Tylenol Extra Strength)
docusate sodium 100 mg capsule 100 mg PO BIDPRN PRN CONSTIPATION 01/26/25 01/26/25 History
(Colace)
oxycodone 5 mg tablet 5 mg PO Q6H PRN SEVERE PAIN 01/26/25 01/26/25 History
rivaroxaban 20 mg tablet (Xarelto) 20 mg PO HS Blood Clot 01/26/25 01/26/25 History
Prevention/Tx
Review of Systems
-
History Source: Patient
All other systems: Negative unless noted
Physical Exam
Vital Signs
Temp Pulse Resp BP Pulse Ox
98.8 F 95 20 129/79 98
01/26/25 11:43 01/26/25 15:58 01/26/25 15:56 01/26/25 15:58 01/26/25 15:56
GEN: No distress, awake, Ox3, lying on stretcher
HEENT: supple, anicteric, mmm
LUNGS: CTA, no wheezes/rales
CV: Reg, S1/S2, 2/6 syst murmur
ABD: soft, BS+, NT/ND
EXT: +3-4 bilateral lower extremity edema Left>Right, skin changes consistent with chronic venous stasis, weeping wounds of left lower extremity
NEURO: Gross non-focal
SKIN: No rash, warm, dry, pink
Lab Results
01/26/25 11:51
01/26/25 11:51
Troponin I 0.016 ng/ml 01/26/25 11:51
Xzm-X-Mobonoxgbfa Pept 1130 pg/ml 01/26/25 11:51
Impression / Plan
-
PCP: Dr. Smith
Registered Dental Assistant Rda: Isaías Lambert
Impression:
Presented 01/26/2025 with worsening lower extremity edema, weeping legs
Lower extremity cellulitis
Leukocytosis
Acute heart failure with preserved ejection fraction, proBNP 1130
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
Paroxysmal atrial fibrillation
Aortic stenosis
Hypertension
Hyperlipidemia
Chronic lower extremity edema
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
Chronic right hemidiaphragm paralysis
BPH with urinary retention
Prediabetes
COPD/asthma
Fatty liver disease
Spinal stenosis
Outpatient hospice clinical supervisor March 2024: Sinus rhythm, avg 75 bpm with 21% burden of A-Fib to atrial flutter. Relatively frequent (4%) PACs with 35 episodes of AT up to 5 beats. Frequent (6%) PVCs versus aberrant ventricular conduction with 34
episodes of VT not exceeding 3 beats.
Echocardiogram 09/25/2024: NL LV size wall thickness and systolic function. LVEF is 55-60%. RV and LA are NL. Calcified and trileaflet AV with restricted leaflet excursion. Doppler's findings and restricted movement of the AV cusps are consistent
with moderate aortic stenosis. Peak/mean gradients across the AV are 40/23 mmHg, respectively. Mild AR. Thickened MV leaflets with mild MR. Mitral annular calcification. Mild TR with PAP of 31 mmHg. The aorta, from all segments that were visualized,
appears NL in dimension, with no evidence of dilatation or obstruction.
Plan:
-Presented 01/26/2025 with worsening lower extremity edema, weeping legs with concern for cellulitis and acute heart failure
-Lower extremity cellulitis with leukocytosis, WBC 22.6. Wound and blood cultures pending. Placed on IV vancomycin per primary service
-Acute heart failure with preserved ejection fraction, proBNP 1130 which is higher than proBNP has been in past. Agree with IV diuresis. Given Lasix 40 mg IV x 1 in ED. Monitor and assess response.
-Monitor renal function and electrolytes with diuresis
-Heart failure education/educator consult
-Lower extremity venous Doppler negative for DVT 01/26/2025
-Per review of outpatient chart patient has chronic lower extremity edema pitting even prior to hip surgery. He had tried low-dose oral Lasix as outpatient without significant improvement. May be component of chronic venous insufficiency or
lymphedema as well as malnutrition with third spacing given low total protein and albumin levels. Would utilize compression wraps if able
-Echo from September 2024 shows preserved ejection fraction with moderate aortic stenosis peak/mean gradient 40/23 mmHg. Repeat echo to reassess LV function and valve gradients
-Remote history of paroxysmal atrial fibrillation with low burden on prior outpatient monitor. Currently in sinus rhythm. Continue to monitor on telemetry
- Patient has history of BPH with urinary retention. Would likely benefit from Vazquez. Discussed with hospitalist
- Continue outpatient medications including Toprol, atorvastatin, Zetia and Xarelto
Plan discussed with patient, nursing and hospitalist
[facility] 01/26/2025:
Patient is an 84 y/o male past medical history of paroxysmal atrial fibrillation, aortic stenosis, hypertension, hyperlipidemia, chronic lower extremity edema, history of DVT on chronic anticoagulation with Xarelto, chronic right hemidiaphragm
paralysis, BPH with urinary retention, prediabetes and COPD/asthma who presents 01/26/2025 with worsening bilateral lower extremity edema and weeping/redness of left lower extremity. Patient recently underwent left total hip replacement on January
with Dr. Day. He was discharged to [facility] facility. Over the last 2 weeks he has noted worsening bilateral lower extremity edema, scrotal edema and new weeping/redness of left lower extremity which was like of hip replacement. He
also noted worsening shortness of breath and balance issues prompting him to return to emergency department. Chest x-ray showed no acute cardiopulmonary abnormality. EKG showed sinus tachycardia with PACs and incomplete right bundle branch block.
Troponin 0.016. Lower extremity venous Doppler showed no evidence of DVT bilaterally. Noted of elevated white count of 22.6. proBNP of 1130. Low total protein and albumin 5.6/3.2
Data Reviewed
-
EKG: Report Reviewed by me, Discussed with Physician, Discussed with Nurse and Discussed with Patient
Radiology: Report Reviewed by me, Discussed with Physician, Discussed with Nurse and Discussed with Patient
Ultrasound: Report Reviewed by me, Discussed with Physician, Discussed with Nurse and Discussed with Patient
Labs: Labs Reviewed by me, Discussed with Physician, Discussed with Nurse and Discussed with Patient
Old Records: Reviewed
[2025-01-26] MEDS: ANCEF 10 IV (20:38)
[2025-01-26] MEDS: FLUSH (NSS) 2 FLUSH IV ×3 (20:39→23:39)
--- NOTE | 2025-01-26 20:45 | PTCARENOTE ---
Pt freq using urinal to void sml amt <50ml at a time. Assisted to BR by 2 staff; gait sl unsteady & weak. Straight cathed for 725ml. HR 130's when ambulating. LLE quite red w/edema & weeping dk yellow fld.
[2025-01-26] MEDS: XARELTO 20 MG PO (22:07)
[2025-01-26] MEDS: FLOMAX 0.4 MG PO (22:07)
[2025-01-26] MEDS: PEPCID 20 MG PO (22:08)
[2025-01-26] MEDS: ZETIA 10 MG PO (22:08)
[2025-01-26] MEDS: LOPRESSOR 2.5 MG IV (23:38)
--- NOTE | 2025-01-26 23:45 | PTCARENOTE ---
Cathryn VEGA notified of pt's HR 120 - 130 much of time. Metroprolol 2.5mg IV given.
[2025-01-27] VITALS (10 sets, daily range): BP systolic 69–145; BP diastolic 45–84; PULSE 100–103; O2SAT 97; BMI 29.9
[2025-01-27] MEDS: ANCEF 10 IV ×3 (04:50→20:47)
[2025-01-27] MEDS: SPIRIVA RESPIMAT 2.5 MCG 2 PUFF INH (07:17)
[2025-01-27] MEDS: ZYLOPRIM 100 MG PO (07:46)
[2025-01-27] MEDS: TOPROL XL 25 MG PO (07:46)
[2025-01-27] MEDS: LASIX 40 MG IV ×2 (07:46→16:47)
[2025-01-27 08:07] LABS: Hematocrit 31.4 % (39.0-52.0); Hemoglobin 10.2 g/dL (13.0-18.0); Mean Corp Hgb Conc. 32.5 g/dL (33.0-37.0); Mean Corpuscular Volume 94.9 fL (80.0-94.0); Platelet Count 302 10^3/uL (130-400); Red Cell Dist. Width 16.4 % (11.5-14.5)
[2025-01-27 08:46] LABS: Blood Urea Nitrogen 29 mg/dl (9-20); Calcium 8.1 mg/dl (8.4-10.2); Carbon Dioxide 22 mmol/L (22-30); Chloride 101 mmol/L (98-107); Estimated Creatinine Clearance 44 ml/min; Glucose 95 mg/dl (70-99); Potassium 3.4 mmol/L (3.5-5.1); Sodium 133 mmol/L (135-145); eGFR 53.50
[2025-01-27] MEDS: KCL 40 MEQ PO (09:18)
--- NOTE | 2025-01-27 12:46 | W.PN.HOSP.TC ---
Today's Communication/Plan
-
replete kcl
diuresis-monitor BP
iv abx
compression therapy
Assessment / Plan
Assessment / Plan
General: Comfortable and Conversant
HEENT: Anicteric and Moist mucous membranes; No Oxygen
Respiratory: Clear and Non Labored Respirations; No Rales
Cardiac: S1/S2 and Regular Rhythm
GI: Soft and Non Tender
Genito-urinary: Other (Scrotal swelling)
Musculoskeletal: No Clubbing, No Cyanosis and Other (+4 edema LLE, +2 edema RLE)
Skin: Other (LLE with moderate erythema from the below the knee to the ankle with large amount of serosanginous weeping, and scattered areas of ecchymosis; Left hip incision site without evidence of infection)
Neuro: Awake, Alert, Oriented and Nonfocal/grossly intact
Psych: Calm
Acute HFpEF
-Consult Cardiology
-Echo Sep 2024: Normal ventricular size and function with EF 55 to 60%. Moderate aortic stenosis with mild aortic regurgitation
-Start Lasix 40mg IV BID
-Monitor Is&Os and Daily Weights
-may need to decrease dose if remains orthostatic
Left Lower Extremity Cellulitis
-Continue Ancef. WBC downtrended.
Acute Post-Op Blood Loss Anemia, suspect component of dilution in setting of heart failure
-Trend serial Hgb
Hyponatremia, mild, suspect hypervolemic in nature
-Continue fluid restriction
BPH with urinary retention
-cont with flomax
-bladder scan protocol
Paroxysmal Atrial Fibrillation
-Continue Xarelto for anticoagulation
-Continue metoprolol for rate control
Essential Hypertension
-Continue metoprolol
Hyperlipidemia
-Continue atorvastatin and ezetimibe
Diabetes Mellitus, Type II
-Hgba1c 6.4
-Continue diabetic diet
Asthma / COPD
-Continue Spiriva
Hypokalemia
-replete/monitor
DVT Proph: Xarelto
Code Status: Full Code
d/w with family member at bedside
PT/OT eval
Anticipated Discharge: > 48 hours
Subjective/Interval History
-
Date of Service: January 27, 2025
states improvement in edema
felt lightheaded while sitting in chair
Objective Data
-
Labs:
Laboratory Results
01/27/25
06:58
WBC 16.8 H
Hgb 10.2 L
Hct 31.4 L
Plt Count 302
Sodium 133 L
Potassium 3.4 L
Chloride 101
Carbon Dioxide 22
BUN 29 H
Creatinine 1.3
Glucose 95
Calcium 8.1 L
Vital Signs:
Vital Signs
Temp Pulse Resp BP Pulse Ox
97.1 F 90 18 114/58 98
01/27/25 11:00 01/27/25 11:00 01/27/25 11:00 01/27/25 11:00 01/27/25 11:00
I&O
01/26/25 01/27/25 01/28/25
06:59 06:59 06:59
Intake Total 240 / 240
Output Total 1874 / 187
Balance -1635 / -1635
--- NOTE | 2025-01-27 13:00 | CM ---
Initial assessment completed, spoke w/ patient's daughter, Trisha. Patient is an 84 y/o male past medical history of paroxysmal atrial fibrillation, hypertension, hyperlipidemia, prediabetes and asthma who presents with increasing swelling and
redness of the left lower extremity.
Patient resides in basement apartment of daughter's home. 12 steps down to apartment. Patient is independent w/ ambulation, uses RW, cane and also has a w/c. Additional grab bar and raised toilet seat in the bathroom. [facility] following
recent admission. Current w/ [facility] for PT/OT.
Address, points of contact and insurance verified
PCP: Jameel Smith
Pharmacy: [facility]
Therapy assessed, recommending home health at discharge. DON referral sent to [facility]
Plan: Home, DON w/ [facility]
--- NOTE | 2025-01-27 14:52 | W.PN.UPDATE ---
Update Note
Progress Note Update
Patient resting comfortably. Afeb. Marginal improvement in appearance of LLE. Continue treatment per the primary team/consultants. Continue IV ABX. Left hip incision looks great. Unrestricted ROM with minimal pain. Again, he is 2 weeks from JOH[facility].
Continue WBAT on device with PT/OT. Maintain THPs. When deemed medically appropriate for D/c recommend outpatient Ortho follow-up in 2 weeks
--- NOTE | 2025-01-27 15:03 | W.PN.CARDCBS ---
Addendum entered and electronically signed by Angelo Garcia MD 01/27/25 17:23:
I saw and examined the patient.
The Dirt Shoveler's note was reviewed and I agree with the note.
Comment:
GEN: No distress, awake, Ox3
HEENT: supple, anicteric, mmm
LUNGS: CTA, no wheezes/rales
CV: Reg, S1/S2, 1/6 syst LSB, no gallop
ABD: soft, BS+, NT/ND
EXT: +2 edema L>R
NEURO: Gross non-focal
SKIN: + Erythema L leg
Plan:
Weight is overall improved. Will continue Lasix 40 mg IV twice daily. Creatinine at 1.3. Continue to follow. I suspect his edema is multifactorial although there is a component of heart failure.
Echo reviewed with moderate aortic stenosis and stable
Continue cefazolin for cellulitis
Remains in sinus rhythm. Continue Toprol and Xarelto
Original Note:
Today's Communication / Plan
-
Ongoing attempts at diuresis
There may be a component of chronic venous stasis or lymphedema causing his LE edema, reluctant to use compression dressings due to cellulitis
Impression / Plan
-
PCP: Dr. Smith
Surveillance Manager: Isaías Lambert
Impression:
Presented 01/26/2025 with worsening lower extremity edema, weeping legs
Lower extremity cellulitis
Leukocytosis
Acute HFpEF
Moderate peak/mean 57/29 mmHg and MARICEL 1.54 cm sq by echo 01/27/2025
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
Paroxysmal atrial fibrillation
Chronic Xarelto OAC
Aortic stenosis
Hypertension
Hyperlipidemia
Chronic lower extremity edema
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
Chronic right hemidiaphragm paralysis
BPH with urinary retention
Prediabetes
COPD/asthma
Fatty liver disease
Spinal stenosis
Outpatient patient monitor March 2024: Sinus rhythm, avg 75 bpm with 21% burden of A-Fib to atrial flutter. Relatively frequent (4%) PACs with 35 episodes of AT up to 5 beats. Frequent (6%) PVCs versus aberrant ventricular conduction with 34
episodes of VT not exceeding 3 beats.
Echo 09/25/2024: NL LV size wall thickness and systolic function. LVEF is 55-60%. RV and LA are NL. Calcified and trileaflet AV with restricted leaflet excursion. Doppler's findings and restricted movement of the AV cusps are consistent with moderate
aortic stenosis. Peak/mean gradients across the AV are 40/23 mmHg, respectively. Mild AR. Thickened MV leaflets with mild MR. Mitral annular calcification. Mild TR with PAP of 31 mmHg. The aorta, from all segments that were visualized, appears NL in
dimension, with no evidence of dilatation or obstruction.
Echo 01/27/2025: EF 65 to 70%, moderate peak/mean 57/29 mmHg and MARICEL 1.54 cm sq, mild TR with PAP 35 mmHg, TDS
Plan:
-Presented 01/26/2025 with worsening lower extremity edema, weeping legs with concern for cellulitis and acute heart failure
-Leukocytosis is improving, patient is afebrile and hospitalist is managing antibiotics with Ancef 2 g IV every 8 hours
-From a cardiac standpoint, patient also admitted with acute HFpEF.
-Weight is down 3 lbs overnight with Lasix 40 mg IV BID. Patient was not taking a diuretic prior to admission according to med rec performed in the ER on admission.
-Dry weight unknown
-Cre increased to 1.3 on my review of labs 01/27/2025. Follow-up BMP in AM.
-EF preserved to 65 to 70% by echo 01/27/2025. Patient also has moderate with peak/mean 57/29 mmHg and MARICEL 1.54 cm sq
-Persistent LE edema, reluctant to start B/L LE compression dressings due to cellulitis. There could be a component of chronic venous insufficiency or lymphedema.
-Outpatient dose of Toprol-XL 25 mg daily has been continued
-Patient is not chronically on ANN/ARB/ARNI/aldosterone antagonist with preserved EF
-Patient is not chronically on SGLT2 inhibitor and will not start in the setting of cellulitis
-Telemetry reviewed by me looks SR with PACs
-Patient has a history of paroxysmal atrial fibrillation and is chronically on Xarelto 20 mg daily which has been continued
HPI 01/26/2025:
Patient is an 84 y/o male past medical history of paroxysmal atrial fibrillation, aortic stenosis, hypertension, hyperlipidemia, chronic lower extremity edema, history of DVT on chronic anticoagulation with Xarelto, chronic right hemidiaphragm
paralysis, BPH with urinary retention, prediabetes and COPD/asthma who presents 01/26/2025 with worsening bilateral lower extremity edema and weeping/redness of left lower extremity. Patient recently underwent left total hip replacement on January
with Dr. Day. He was discharged to [facility] facility. Over the last 2 weeks he has noted worsening bilateral lower extremity edema, scrotal edema and new weeping/redness of left lower extremity which was like of hip replacement. He
also noted worsening shortness of breath and balance issues prompting him to return to emergency department. Chest x-ray showed no acute cardiopulmonary abnormality. EKG showed sinus tachycardia with PACs and incomplete right bundle branch block.
Troponin 0.016. Lower extremity venous Doppler showed no evidence of DVT bilaterally. Noted of elevated white count of 22.6. proBNP of 1130. Low total protein and albumin 5.6/3.2
Progress Note - Surveillance Manager
Subjective
Date of Service: January 27, 2025
Patient thinks LE edema is better
Objective
Labs:
01/27/25 06:58
01/27/25 06:58
Labs
Hgb 10.2 g/dL (13.0-18.0) L 01/27/25 06:58
Hct 31.4 % (39.0-52.0) L 01/27/25 06:58
Plt Count 302 10^3/uL (130-400) 01/27/25 06:58
PT 21.4 Sec (11.4-14.6) H 01/26/25 11:51
INR 1.84 01/26/25 11:51
Sodium 133 mmol/L (135-145) L 01/27/25 06:58
Potassium 3.4 mmol/L (3.5-5.1) L 01/27/25 06:58
BUN 29 mg/dl (9-20) H 01/27/25 06:58
Creatinine 1.3 mg/dL (0.7-1.3) 01/27/25 06:58
Glucose 95 mg/dl (70-99) 01/27/25 06:58
Troponins
01/26/25
11:51
Troponin I 0.016
Vital Signs and I&O:
Vital Signs
Temp Pulse Resp BP Pulse Ox
97.1 F 90 18 114/58 98
01/27/25 11:00 01/27/25 11:00 01/27/25 11:00 01/27/25 11:00 01/27/25 11:00
Vital Signs
Temp Pulse Resp BP Pulse Ox
97.1 F 90 18 114/58 98
01/27/25 11:00 01/27/25 11:00 01/27/25 11:00 01/27/25 11:00 01/27/25 11:00
Intake & Output
01/25/25 01/26/25 01/27/25 01/28/25
06:59 06:59 06:59 06:59
Intake Total 240 / 240
Output Total 1875 / 1875
Balance -1635 / -1635
Physical Exam
Physical Exam
GEN: AAO x 3
LUNGS: RA. No audible wheeze
CV: SR with PACs on telemetry.
EXT: +3 B/L LE edema
NEURO: Gross non-focal
SKIN: No rash, warm, dry, pink
[2025-01-27] MEDS: KCL 20 MEQ PO (16:47)
[2025-01-27] MEDS: FLOMAX 0.4 MG PO (16:52)
[2025-01-27] MEDS: XARELTO 20 MG PO (20:48)
[2025-01-27] MEDS: PEPCID 20 MG PO (20:48)
[2025-01-27] MEDS: ZETIA 10 MG PO (20:48)
[2025-01-28] MEDS: MELATONIN 5 MG PO (00:41)
[2025-01-28] MEDS: ANCEF 10 IV ×2 (03:48→13:04)
[2025-01-28 04:13] VITALS: BP 117/51
[2025-01-28 06:00] VITALS: BMI 28.8
--- NOTE | 2025-01-28 06:52 | W.PN.UPDATE ---
Update Note
Progress Note Update
Patient resting comfortably in bed. S/p L JOHANNA 01/14/[address] Day. Afebrile. WBC downtrended. Exam remains consistent with left lower extremity cellulitis. He endorses gradual improvements with pain and erythema since admission.
Continue with treatment per the primary team/consultants. Continue IV antibiotics. Left hip incision looks great without any concerns. Left hip ROM without pain. Continue WBAT on assistive device with PT/OT as tolerated. Maintain THP's. When
deemed medically appropriate for discharge, recommend outpatient Ortho follow-up in 2 weeks. Will follow.
[2025-01-28] MEDS: ZYLOPRIM 100 MG PO (07:34)
[2025-01-28] MEDS: TOPROL XL 25 MG PO (07:34)
[2025-01-28] MEDS: KCL 20 MEQ PO (07:34)
[2025-01-28] MEDS: SPIRIVA RESPIMAT 2.5 MCG 2 PUFF INH (07:52)
[2025-01-28 08:01] VITALS: BP 100/58; BP 141/71; BP 96/47; PULSE 102; PULSE 104; PULSE 91
[2025-01-28 08:49] VITALS: BP 112/57; BP 132/60; BP 135/69; BP 85/49; PULSE 85; PULSE 88; O2SAT 98
--- NOTE | 2025-01-28 09:44 | PN.CDI ---
CDI
- -
CDI:
Physician Documentation Request
Admit Date: 01/26/25 16:49
Dear ,
[facility] is using an adapted version of the 2016 Third International Consensus Definitions for Sepsis and Septic Shock (Sepsis-3) where sepsis is defined as life threatening organ dysfunction caused by a deregulated host response to infection.
Please reference the official [facility] Sepsis Recognition Tool for further information, which can be found on the Intranet under Infection Prevention.
Clinical Indicators Include:
Progress Notes: Pt admitted with Acute on Chronic HFpEF/LLE cellulitis
Documented per ED, ' Patient had labs obtained prior to my assessment with significant leukocytosis of 22, again in keeping with underlying infection and cellulitis.'
HR:126
O2 Sats:
Labs:
WBC: 22.6
Bilirubin:2.1
Treatment: IV abx
Based on your medical judgment, can you further clarify the diagnosis being monitored/treated this admission?
� Sepsis due to LLE Cellulitis with organ dysfunction of Hyperbilirubinemia
� LLE Cellulitis only
� Other ( please specify)
Use of terms such as suspected, likely, concern for, or probable (associated with a specific diagnosis that is being evaluated, monitored, or treated as if it exists) are acceptable and can be coded in the inpatient setting when documented at the
time of discharge.
Please use your independent medical judgement in providing your response.
Thank you,
Sonya Sweet RN
CDI Specialist
[employer]
--- NOTE | 2025-01-28 09:56 | W.PN.CARDCBS ---
Addendum entered and electronically signed by Nam Quintana MD 01/28/25 15:39:
I saw and examined the patient on morning rounds.
The Paper Folder's note was reviewed and I agree with the note.
Comment: Briefly, 84-year-old man past medical history of moderate aortic stenosis and atrial fibrillation who presented with lower extremity edema following elective hip replacement earlier this month and was diagnosed with cellulitis as well as
acute decompensated heart failure with preserved ejection fraction
Volume status significantly improved with IV diuresis
Weight is down to 189 pounds which is lowest on record
Creatinine has remained stable
Okay to transition to oral Lasix from my standpoint. Tentatively plan for 40 mg daily.
Stable for discharge. We will arrange outpatient follow-up.
Original Note:
Today's Communication / Plan
-
Recommend Lasix 40 mg PO daily upon discharge to home
Cardiology follow-up being arranged
Impression / Plan
-
PCP: Dr. Smith
Financial Sales Professional: Isaías Lambert
Impression:
Presented 01/26/2025 with worsening lower extremity edema, weeping legs
Lower extremity cellulitis
Leukocytosis
Acute HFpEF
Moderate peak/mean 57/29 mmHg and MARICEL 1.54 cm sq by echo 01/27/2025
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
Paroxysmal atrial fibrillation
Chronic Xarelto OAC
Aortic stenosis
Hypertension
Hyperlipidemia
Chronic lower extremity edema
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
Chronic right hemidiaphragm paralysis
BPH with urinary retention
Prediabetes
COPD/asthma
Fatty liver disease
Spinal stenosis
Outpatient gambling monitor March 2024: Sinus rhythm, avg 75 bpm with 21% burden of A-Fib to atrial flutter. Relatively frequent (4%) PACs with 35 episodes of AT up to 5 beats. Frequent (6%) PVCs versus aberrant ventricular conduction with 34
episodes of VT not exceeding 3 beats.
Echo 09/25/2024: NL LV size wall thickness and systolic function. LVEF is 55-60%. RV and LA are NL. Calcified and trileaflet AV with restricted leaflet excursion. Doppler's findings and restricted movement of the AV cusps are consistent with moderate
aortic stenosis. Peak/mean gradients across the AV are 40/23 mmHg, respectively. Mild AR. Thickened MV leaflets with mild MR. Mitral annular calcification. Mild TR with PAP of 31 mmHg. The aorta, from all segments that were visualized, appears NL in
dimension, with no evidence of dilatation or obstruction.
Echo 01/27/2025: EF 65 to 70%, moderate peak/mean 57/29 mmHg and MARICEL 1.54 cm sq, mild TR with PAP 35 mmHg, TDS
Plan:
-Presented 01/26/2025 with worsening lower extremity edema, weeping legs with concern for cellulitis and acute heart failure
-Leukocytosis is improving, patient is afebrile and hospitalist is managing antibiotics with Ancef 2 g IV every 8 hours
-From a cardiac standpoint, patient also admitted with acute HFpEF.
-Weight is down to 189 lbs using standing scale on my review of VS 01/28/2025. This is below any previous dry weight we have on record.
-Patient was diuresed with Lasix 40 mg IV BID this admission. Patient was not taking a diuretic prior to admission according to med rec performed in the ER on admission. Recommend Lasix 40 mg PO daily upon discharge to home
-Cre improved a bit to 1.2 on my review of labs 01/28/2025.
-EF preserved to 65 to 70% by echo 01/27/2025. Patient also has moderate with peak/mean 57/29 mmHg and MARICEL 1.54 cm sq
-Persistent LE edema, reluctant to start B/L LE compression dressings due to cellulitis. There could be a component of chronic venous insufficiency or lymphedema.
-Outpatient dose of Toprol-XL 25 mg daily has been continued
-Patient is not chronically on ANN/ARB/ARNI/aldosterone antagonist with preserved EF
-Patient is not chronically on SGLT2 inhibitor and will not start in the setting of cellulitis
-Telemetry reviewed by me looks SR with PACs
-Patient has a history of paroxysmal atrial fibrillation and is chronically on Xarelto 20 mg daily which has been continued
- Patient is stable for discharge to home with VN from a cardiac perspective 01/28/2025
HPI 01/26/2025:
Patient is an 84 y/o male past medical history of paroxysmal atrial fibrillation, aortic stenosis, hypertension, hyperlipidemia, chronic lower extremity edema, history of DVT on chronic anticoagulation with Xarelto, chronic right hemidiaphragm
paralysis, BPH with urinary retention, prediabetes and COPD/asthma who presents 01/26/2025 with worsening bilateral lower extremity edema and weeping/redness of left lower extremity. Patient recently underwent left total hip replacement on January
with Dr. Day. He was discharged to assisted facility. Over the last 2 weeks he has noted worsening bilateral lower extremity edema, scrotal edema and new weeping/redness of left lower extremity which was like of hip replacement. He
also noted worsening shortness of breath and balance issues prompting him to return to emergency department. Chest x-ray showed no acute cardiopulmonary abnormality. EKG showed sinus tachycardia with PACs and incomplete right bundle branch block.
Troponin 0.016. Lower extremity venous Doppler showed no evidence of DVT bilaterally. Noted of elevated white count of 22.6. proBNP of 1130. Low total protein and albumin 5.6/3.2
Progress Note - Financial Sales Professional
Subjective
Date of Service: January 28, 2025
Patient feels well and is anxious for discharge to home, he is already packed up his things this morning
Objective
Labs:
01/27/25 06:58
Labs
Hgb 10.2 g/dL (13.0-18.0) L 01/27/25 06:58
Hct 31.4 % (39.0-52.0) L 01/27/25 06:58
Plt Count 302 10^3/uL (130-400) 01/27/25 06:58
PT 21.4 Sec (11.4-14.6) H 01/26/25 11:51
INR 1.84 01/26/25 11:51
Sodium Cancelled 01/28/25 08:08
Potassium Cancelled 01/28/25 08:08
BUN Cancelled 01/28/25 08:08
Creatinine Cancelled 01/28/25 08:08
Glucose Cancelled 01/28/25 08:08
Troponins
01/26/25
11:51
Troponin I 0.016
Vital Signs and I&O:
Vital Signs
Temp Pulse Resp BP Pulse Ox
98.0 F 91 16 141/71 99
01/28/25 08:01 01/28/25 08:01 01/28/25 08:01 01/28/25 08:01 01/28/25 08:01
Vital Signs
Temp Pulse Resp BP Pulse Ox
98.0 F 91 16 141/71 99
01/28/25 08:01 01/28/25 08:01 01/28/25 08:01 01/28/25 08:01 01/28/25 08:01
Intake & Output
01/26/25 01/27/25 01/28/25 01/29/25
06:59 06:59 06:59 06:59
Intake Total 240 / 240 980 / 980
Output Total 1875 / 1875 1025 / 1025
Balance -1635 / -1635 -45 / -45
Physical Exam
Physical Exam
GEN: AAO x 3
LUNGS: RA. No audible wheeze
CV: SR with PACs on telemetry.
EXT: +2 B/L LE edema
NEURO: Gross non-focal
SKIN: No rash, warm, dry, pink
[2025-01-28 10:17] LABS: Blood Urea Nitrogen 35 mg/dl (9-20); Calcium 8.3 mg/dl (8.4-10.2); Carbon Dioxide 25 mmol/L (22-30); Chloride 102 mmol/L (98-107); Estimated Creatinine Clearance 43 ml/min; Glucose 114 mg/dl (70-99); Potassium 4.0 mmol/L (3.5-5.1); Sodium 132 mmol/L (135-145); eGFR 58.89
[2025-01-28] MEDS: LASIX 40 MG IV (10:25)
--- NOTE | 2025-01-28 11:06 | W.PN.HOSP.TC ---
Today's Communication/Plan
-
DC IV lasix
po regimen per cards
po abx on dc
monitor BP
home health
Assessment / Plan
Assessment / Plan
General: Comfortable and Conversant
HEENT: Anicteric and Moist mucous membranes; No Oxygen
Respiratory: Clear and Non Labored Respirations; No Rales
Cardiac: S1/S2 and Regular Rhythm
GI: Soft and Non Tender
Genito-urinary: Other (Scrotal swelling)
Musculoskeletal: LE edema-improved.
Neuro: Awake, Alert, Oriented and Nonfocal/grossly intact
Psych: Calm
Acute HFpEF
-Consult Cardiology
-Echo Sep 2024: Normal ventricular size and function with EF 55 to 60%. Moderate aortic stenosis with mild aortic regurgitation
-Start Lasix 40mg IV BID-dc further IV diuresis. po regimen per cards. orthos noted.
-Monitor Is&Os and Daily Weights
Orthostatics hypotension 2/2 IV diuresis
-DC IV lasix.
Sepsis due to LLE Cellulitis with organ dysfunction of Hyperbilirubinemia
-Continue Ancef. WBC downtrended. Po abx on dc. wbc downtrending.
Acute Post-Op Blood Loss Anemia, suspect component of dilution in setting of heart failure
-Hgb 10.2
Hyponatremia, mild, suspect hypervolemic in nature
-Continue fluid restriction
BPH with urinary retention
-cont with flomax
-bladder scan protocol
Paroxysmal Atrial Fibrillation
-Continue Xarelto for anticoagulation
-Continue metoprolol for rate control
Essential Hypertension
-Continue metoprolol
Hyperlipidemia
-Continue atorvastatin and ezetimibe
Diabetes Mellitus, Type II
-Hgba1c 6.4
-Continue diabetic diet
Asthma / COPD
-Continue Spiriva
Hypokalemia
-replete/monitor
DVT Proph: Xarelto
Code Status: Full Code
PT/OT eval-home health
Anticipated Discharge: Today
Subjective/Interval History
-
Date of Service: January 28, 2025
states didn't sleep much overnight
wants to go home
states improvement in edema
Objective Data
-
Labs:
Laboratory Results
01/28/25 01/28/25
08:08 09:28
Sodium Cancelled 132 L
Potassium Cancelled 4.0
Chloride Cancelled 102
Carbon Dioxide Cancelled 25
BUN Cancelled 35 H
Creatinine Cancelled 1.2
Glucose Cancelled 114 H
Calcium Cancelled 8.3 L
Vital Signs:
Vital Signs
Temp Pulse Resp BP Pulse Ox
98.0 F 91 16 141/71 99
01/28/25 08:01 01/28/25 08:01 01/28/25 08:01 01/28/25 08:01 01/28/25 08:01
I&O
01/27/25 01/28/25 01/29/25
06:59 06:59 06:59
Intake Total 240 / 240 980 / 980
Output Total 1875 / 1875 1025 / 1025
Balance -1635 / -1635 -45 / -45
[2025-01-28 11:26] VITALS: BP 115/62
[2025-01-28 11:45] LABS: ALT (SGPT) 14 U/L (0-50); AST (SGOT) 24 U/L (17-59); Albumin 2.7 g/dl (3.5-5.0); Alkaline Phosphatase 83 U/L (38-126); Total Protein 5.1 g/dl (6.3-8.2)
--- NOTE | 2025-01-28 14:09 | W.DCSUMMARY ---
Discharge Summary
Discharge Data
Date of Admission: 01/26/25
Date of Discharge: 01/28/25
-
Pending Results: No
Hospital Course
84-year-old male past medical history of BPH, atrial fibrillation, hypertension, hyperlipidemia, diabetes mellitus, obstructive pulmonary disease, recently underwent left hip surgery who is presented with lower extremity edema. Patient was found to
be in new onset of acute congestive heart failure exacerbation. Patient was eval by cardiology and orthopedic. Echocardiogram with EF of 55 to 60%. Patient was started on IV Lasix. Patient also with concern for left lower extremity cellulitis
and was started on IV cefazolin. Patient with improvement in edema. Patient with improvement of erythema on the left lower extremity. IV Lasix was transitioned to 40 mg p.o. Lasix on discharge. IV antibiotic will be transition to p.o. Keflex
upon discharge. Had leukocytosis on admission and white blood cell downtrended. Patient remained afebrile. Patient was ambulating in the room without difficulty. Patient was seen by physical and Occupational Therapy will be discharged home with
outpatient close cardiology follow-up.
Discharge Plan
-
Patient Disposition: Home with Home Care
Discharge Diagnosis/Procedures: Acute HFrEF
Orthostatic hypotension
Sepsis due to left lower extremity cellulitis with organ dysfunction of hyperbilirubinemia
Mild hyponatremia
Mild urinary retention
Condition: Fair
Diet: 2 Gram Sodium and Restrict fluids to 48 oz
Activity: As tolerated
Blood Work: BMP in 1 week via primary doctor.
Other Services: VN
Specialty Instructions: Weigh Daily- Call MD for wt gain/loss 3 lbs overnight/5 lbs in 1 week
Activity Restrictions/Additional Instructions:
Keep daily log of your blood pressures at home to review with your primary care provider in follow up.
Please take medications as prescribed/recommended and follow up with primary care provider and/or other healthcare provider involved in your care for refills and/or further adjustment to your medication regimen as necessary. �
Instructions: Orthostatic hypotension, *DCA Heart Failure Instructions
Referrals:
Martynec,Jameel, MD [Family Provider, Internal Medicine] - in less than 1 week
Isaías Lambert MD [Active, Cardiology]
Prescriptions:
New
cephalexin 500 mg capsule
500 mg PO Q6H 5 Days Qty: 20 0RF
furosemide [Lasix] 40 mg tablet
40 mg PO DAILY Qty: 30 0RF
Continued
atorvastatin 40 MG tablet
40 mg PO HS
albuterol sulfate [Ventolin HFA] 1 PUFF HFA aerosol inhaler
1 puff inhalation R Q6HPRN PRN (Reason: shortness of breath)
allopurinol 100 mg Tablet
100 mg PO DAILY
famotidine 20 mg Tablet
20 mg PO HS
metoprolol succinate [Toprol XL] 25 mg Tablet Extended Release 24 Hr
25 mg PO DAILY
ipratropium bromide 42 mcg (0.06 %) [place],Non-Aerosol
2 spray INTRANASAL DAILYPRN PRN (Reason: ALLERGIES)
fluticasone propionate 50 mcg/actuation [place],Suspension
1 spray INTRANASAL DAILYPRN PRN (Reason: congestion)
ezetimibe 10 mg Tablet
10 mg PO HS
silodosin 4 mg Capsule
4 mg PO QPM
Spiriva Respimat 1.25 mcg/actuation [place]
2 puff INHALATION R DAILY
Xarelto 20 mg Tablet
20 mg PO HS
docusate sodium [Colace] 100 mg capsule
100 mg PO BIDPRN PRN (Reason: CONSTIPATION)
oxycodone 5 mg tablet
5 mg PO Q6H PRN (Reason: SEVERE PAIN)
acetaminophen [Tylenol Extra Strength] 500 mg Tablet
1,000 mg PO Q6HPRN PRN (Reason: MILD PAIN)
Discharge Orders:
Discharge Patient (As Directed); Ordered 01/28/25
Ordered By: Bebeto Corbin
Discharge Date and Time
Discharge Date/Time: 01/28/25 15:12
Print Language: SYRIAN
--- NOTE | 2025-01-28 14:25 | CM ---
Patient will discharge home today
Met w/ patient bedside, aware of discharge. Daughter will transport home
Current w/ [facility], will resume care at discharge
IMM verbally reviewed, copy provided, copy on chart
Jefry

Plan: Home, DON w/ [facility]
[2025-01-28 15:10] VITALS: BP 154/78
--- NOTE | 2025-01-29 11:38 | W.HF.CON ---
Heart Failure
- LV Function
Left ventricular function study result: LV Ejection fraction >/= 50%
Ejection Fraction Percentage: 65-70
- ARNI
Patient already on ARNI: No
Heart Failure ARNI Not Indicated: LV Ejection Fraction >/= 40%
- ACEI/ARB
Patient already on ACEI/ARB: No
Heart Failure ACEI/ARB Not Indicated: LV Ejection Fraction > 40%
- Beta Vianca
Patient already on Evidence Based Beta Vianca: Yes
- Mineralocorticord Receptor Antagonist
Patient already on MRA: No
Heart Failure MRA Not Indicated: LV Ejection Fraction > 40%
- SGLT-2 Inhibitor
Patient already on SGLT-2 Inhibitor: No
Heart Failure SGLT-2 Inhibitor Contraindication: Patient Refusal
- Afib Anticoagulation
Patient already on Anticoagulation for Afib: Yes
- NYHA CHF Classification
NYHA CHF Classification Level: Class III - Symptoms w/ min exertion, interferes w/ nml daily activity
- ACC/AHA Stage
ACC/AHA Stage: Stage C: Symptomatic Heart Failure
== END 2025-01-28 15:12 | disposition home health service (06) | DRG 871 ==
LOC: 4 WEST ACU 16:49
PROVIDERS: Emergency Medicine; Physician Assistant Medical; ADMITTING PHYSICIAN Hospitalist; ATTENDING PHYSICIAN Hospitalist; CONSULT PHYSICIAN Internal Medicine Cardiovascular Disease; CONSULT PHYSICIAN Student in an Organized Health Care Education/Training Program; EMERGENCY PHYSICIAN Student in an Organized Health Care Education/Training Program; FAMILY PHYSICIAN Internal Medicine Geriatric Medicine
DX: A41.9 Sepsis, unspecified organism (principal); I50.43 Acute on chronic combined systolic (congestive) and diastolic (congestive) heart failure; E87.1 Hypo-osmolality and hyponatremia; L03.116 Cellulitis of left lower limb; D62 Acute posthemorrhagic anemia; R65.20 Severe sepsis without septic shock; K76.0 Fatty (change of) liver, not elsewhere classified; I11.0 Hypertensive heart disease with heart failure; I95.1 Orthostatic hypotension; N50.89 Other specified disorders of the male genital organs; R33.8 Other retention of urine; N40.1 Benign prostatic hyperplasia with lower urinary tract symptoms; I48.0 Paroxysmal atrial fibrillation; E11.9 Type 2 diabetes mellitus without complications; J44.89 Other specified chronic obstructive pulmonary disease; E87.6 Hypokalemia; I25.10 Atherosclerotic heart disease of native coronary artery without angina pectoris; M48.00 Spinal stenosis, site unspecified; Z96.653 Presence of artificial knee joint, bilateral; Z96.643 Presence of artificial hip joint, bilateral; Z87.891 Personal history of nicotine dependence; E78.00 Pure hypercholesterolemia, unspecified; I35.0 Nonrheumatic aortic (valve) stenosis; I45.10 Unspecified right bundle-branch block; Z79.01 Long term (current) use of anticoagulants; Z79.899 Other long term (current) drug therapy; Z80.1 Family history of malignant neoplasm of trachea, bronchus and lung; Z86.718 Personal history of other venous thrombosis and embolism
CPT/HCPCS: 71046; 80048; 80053; 82248; 83880; 84484; 85025; 85027; 85610; 85652; 86140; 93005; 93306; 93970; 94640; 96365; 96366; 96375; 97110; 97163; 97167; 97530; 99285

== ENCOUNTER 2025-01-31 15:01 | Inpatient (IN) | payer MEDICARE, OTHER, SELFPAY ==
[2025-01-31] VITALS (22 sets, daily range): BP systolic 15–142; BP diastolic 47–102; BMI 29.2; BMI 26.5
[2025-01-31] MEDS: DILAUDID 0.5 MG IV (09:15)
[2025-01-31 09:26] LABS: Hematocrit 34.0 % (39.0-52.0); Hemoglobin 11.2 g/dL (13.0-18.0); Mean Corp Hgb Conc. 32.9 g/dL (33.0-37.0); Mean Corpuscular Volume 95.0 fL (80.0-94.0); Nucleated Red Blood Cells % 0 % (-); Platelet Count 239 10^3/uL (130-400); Red Cell Dist. Width 16.2 % (11.5-14.5)
--- NOTE | 2025-01-31 09:26 | ED.GENMED ---
History of Present Illness
<Prateek Messer PA-C - Last Filed: 01/31/25 16:43>
General
Chief Complaint: Fall
Time Seen by Provider: 01/31/25 08:45
History of Present Illness
History of Present Illness:
84-year-old male presents to the emergency department for evaluation of left hip pain after falling. He was being assisted by his son when he lost his balance and fell and his son subsequently fell on top of him. He is 18 days status post left
total hip replacement performed at this hospital by Dr. Day. Of note he was admitted to this hospital 1 week ago for left lower extremity cellulitis and continues on antibiotics at this time. He reports severe pain to the left hip. Also on
Xarelto for DVT prophylaxis
Past History
<Prateek Messer PA-C - Last Filed: 01/31/25 16:43>
Past History
ED Past Medical History: Asthma, COPD, HTN and Hypercholesterolemia
ED Past Surgical History: Orthopedic and Other (Hernia)
Social History
Tobacco: Former smoker
Alcohol: Occasional
Drug: None
Personal:
Living: with family
Employment: Retired
Family History
Family History: Diabetes
Review of Systems
<Prateek Messer PA-C - Last Filed: 01/31/25 16:43>
Review of Systems
Allergies reviewed?: Yes
All Other Systems: ROS reviewed and negative except as documented in HPI and ROS
Phy Exam
<Prateek Messer PA-C - Last Filed: 01/31/25 16:43>
Physical Exam
Physical Exam:
GEN: Well appearing, NAD, WDWN
HEENT: Oral mucosa moist, no scleral icterus
Cardiac: Regular rate
Lung: No respiratory distress, no tachypnea
MSK: Shortening without rotation of the left lower extremity, moderate hematoma noted to the surgical site, no wound dehiscence, no erythema
Skin: Good color, no pallor or jaundice, no rashes
Neuro: AO x3, moves all extremities freely
Psych: Calm, cooperative
Course
<Prateek Messer PA-C - Last Filed: 01/31/25 16:43>
Orders/Labs/Results
Orders:
Orders
01/31/25 Breakfast
NPO
Allow oral meds: Yes
Allow clear liquids: No
NPO with Ice Chips: Yes
01/31/25 09:08
IV Insert/Care/Rem.- Treatment PRN
01/31/25 09:10
C-Reactive Protein Urgent
Comment: ADD ON
COVID-19 Antigen Urgent
Source: Nasal Swab
Complete Blood Count/With Diff Urgent
Comprehensive Metabolic Panel Urgent
Erythrocyte Sed Rate Urgent
Comment: ADD ON
Influenza A+B Rapid Molecular Urgent
ALECIA Source: Nasal Swab
Specimen Description:
01/31/25 09:13
HYDROmorphone [Dilaudid] 0.5 mg .ROUTE .STK-MED ONE
CR Hip - LT w/wo Pel 2-3 Vw* Urgent
Comment:
Reason For Exam: fall, recent L JOHANNA
Include a pelvis x-ray?: No
01/31/25 09:14
HYDROmorphone [Dilaudid] 0.5 mg IV NOW STA
01/31/25 10:19
Propofol [Diprivan] 20 ml .ROUTE .STK-MED
01/31/25 11:51
CR Hip - LT without Pel 1 Vw Urgent
Comment:
Reason For Exam: reduction
01/31/25 12:06
Hip, Left 1 View [CR Hip - LT without Pel 1 Vw] Urgent
Comment:
Reason For Exam: post reduction
01/31/25 12:13
CT Lower Ext W/o Iv Cont Lt Urgent
Comment:
Reason For Exam: L JOHANNA dislocation
01/31/25 14:15
Admit/Transfer Patient As Directed
Co-Sign Provider:
Level of Care: Inpatient admission
Assign to:: Telemetry
Physician / Group: [email or web address]
Diagnosis: L hip prosthesis dislocation failed attempted closed reduction
Reason for Telemetry: Arrhythmia
Date to Stop Telemetry: 02/03/25
Time to Stop Telemetry: 11:00
Reason for Hospitalization: L hip prosthesis dislocation
Expected length of stay greater than two midnights?: Yes
ELOS- Estimated Length of Stay in days: 3
I certify the patient meets the requirements for IP care: Yes
01/31/25 14:18
Add On- LAB Urgent
Tests Added?: ESR, CRP
Code Status As Directed
Resuscitation Status: Full Code
01/31/25 16:08
Acetaminophen [Tylenol] 650 mg PO Q4HWA
Albuterol [ProAIR HFA INHALER] 1 puff INH R Q6HPRN PRN shortness of breath
Cephalexin Monohydrate [Keflex] 500 mg PO Q6H
Dextrose 50%-Water [Dextrose 50% Syringe] 12.5 grams IV [id number] PRN
Glucagon [GlucaGen] 1 mg IM PRN PRN
Magnesium Hydroxide [Milk of Magnesia] 30 ml PO DAILYPRN PRN
Oxycodone [Roxicodone] 5 mg PO Q4HPRN PRN
Tamsulosin [Flomax] 0.4 mg PO DAILYPRN PRN
ipratropium bromide See Dose Instructions NASAL DAILYPRN PRN
01/31/25 16:08
ORTHOPEDIC CONSULT Routine
Consulting Provider: Gm Day
Was physician already notified: Yes
Reason for consult: L hip prosthesis dislocation
Activity As Directed
Activity Level: With Assistance
Bedside Glucose Monitoring As Directed
Frequency: AC&HS
Additional Instructions:: Change to q6h if pt on TPN, tube feeding or not eating
Bladder Scan As Directed
Follow Bladder Retention/Intermittent Cath Algorithm?: Yes
PRN if no void in __ hours: 6
Comment: if not voiding 6 hrs upon arrival to floor, bladder scan & follow algorithm
Intake/ Output As Directed
Frequency: Per unit guidelines
Pneumatic Compression Sleeves As Directed
Type: Knee high
Straight Cath As Directed
Frequency: Per Retention Algorithm
Additional Instructions: straight cath as needed per acute urinary retention algorithm for 24 hrs
Additional Instructions: for bladder scan greater than 400 mL
Vital Signs As Directed
Frequency: Per unit guidelines
DX Deep Vein Thrombosis Video Routine
01/31/25 16:30
Insulin Aspart Corrective Low [Novolog Flexpen-Low Resistance] See Protocol SC AC
01/31/25 20:00
Docusate Sodium [Colace] 100 mg PO BID
Oseltamivir Phosphate [Tamiflu] 30 mg PO BID
Sennosides [Senokot] 17.2 mg PO BID
02/01/25 06:00
Glycohemoglobin (HgbA1c) IN AM
02/01/25 08:00
Furosemide [Lasix] 40 mg PO DAILY
Metoprolol Xl [Toprol Xl] 25 mg PO DAILY
tiotropium bromide [Spiriva Respimat] 2 puff INH R DAILY
02/03/25 11:00
DC Protocol for Telemetry ONCE
Abnormal Lab Results
01/31/25
09:10
RBC 3.58 L 10^6/uL
(4.70-6.10)
Hgb 11.2 L g/dL
(13.0-18.0)
Hct 34.0 L %
(39.0-52.0)
MCV 95.0 H fL
(80.0-94.0)
MCH 31.3 H pg
(27.0-31.0)
MCHC 32.9 L g/dL
(33.0-37.0)
RDW 16.2 H %
(11.5-14.5)
Absolute Lymphs (auto) 0.7 L 10^3/uL
(1.2-3.4)
Neutrophils % 81.7 H %
(42.2-75.2)
Lymphocytes % 9.8 L %
(20.5-51.1)
ESR 52 H mm/hour
(0-20)
Sodium 133 L mmol/L
(135-145)
BUN 40 H mg/dl
(9-20)
Glucose 100 H mg/dl
(70-99)
Calcium 8.2 L mg/dl
(8.4-10.2)
C-Reactive Protein 49.00 H mg/L
(0.0-10.00)
Total Protein 5.8 L g/dl
(6.3-8.2)
Albumin 2.9 L g/dl
(3.5-5.0)
01/31/25 09:10
01/31/25 09:10
Vital Signs
Initial and Last Documented VS:
Initial Vital Signs
Temp Pulse Resp BP Pulse Ox
97.9 F 90 16 123/74 97
01/31/25 08:49 01/31/25 08:49 01/31/25 08:49 01/31/25 08:49 01/31/25 08:49
Last Documented Vital Signs
Temp Pulse Resp BP Pulse Ox
98.3 F 107 18 109/56 98
01/31/25 12:25 01/31/25 15:30 01/31/25 15:30 01/31/25 15:05 01/31/25 15:30
<Zohra Ibrahim DO - Last Filed: 01/31/25 12:41>
Orders/Labs/Results
Orders:
Orders
01/31/25 Breakfast
NPO
Allow oral meds: Yes
Allow clear liquids: No
NPO with Ice Chips: Yes
01/31/25 09:08
IV Insert/Care/Rem.- Treatment PRN
01/31/25 09:10
C-Reactive Protein Urgent
Comment: ADD ON
COVID-19 Antigen Urgent
Source: Nasal Swab
Complete Blood Count/With Diff Urgent
Comprehensive Metabolic Panel Urgent
Erythrocyte Sed Rate Urgent
Comment: ADD ON
Influenza A+B Rapid Molecular Urgent
ALECIA Source: Nasal Swab
Specimen Description:
01/31/25 09:13
HYDROmorphone [Dilaudid] 0.5 mg .ROUTE .STK-MED ONE
CR Hip - LT w/wo Pel 2-3 Vw* Urgent
Comment:
Reason For Exam: fall, recent L JOHANNA
Include a pelvis x-ray?: No
01/31/25 09:14
HYDROmorphone [Dilaudid] 0.5 mg IV NOW STA
01/31/25 10:19
Propofol [Diprivan] 20 ml .ROUTE .STK-MED
01/31/25 11:51
CR Hip - LT without Pel 1 Vw Urgent
Comment:
Reason For Exam: reduction
01/31/25 12:06
Hip, Left 1 View [CR Hip - LT without Pel 1 Vw] Urgent
Comment:
Reason For Exam: post reduction
01/31/25 12:13
CT Lower Ext W/o Iv Cont Lt Urgent
Comment:
Reason For Exam: L JOHANNA dislocation
01/31/25 14:15
Admit/Transfer Patient As Directed
Co-Sign Provider:
Level of Care: Inpatient admission
Assign to:: Telemetry
Physician / Group: [email or web address]
Diagnosis: L hip prosthesis dislocation failed attempted closed reduction
Reason for Telemetry: Arrhythmia
Date to Stop Telemetry: 02/03/25
Time to Stop Telemetry: 11:00
Reason for Hospitalization: L hip prosthesis dislocation
Expected length of stay greater than two midnights?: Yes
ELOS- Estimated Length of Stay in days: 3
I certify the patient meets the requirements for IP care: Yes
01/31/25 14:18
Add On- LAB Urgent
Tests Added?: ESR, CRP
Code Status As Directed
Resuscitation Status: Full Code
01/31/25 16:08
Acetaminophen [Tylenol] 650 mg PO Q4HWA
Albuterol [ProAIR HFA INHALER] 1 puff INH R Q6HPRN PRN shortness of breath
Cephalexin Monohydrate [Keflex] 500 mg PO Q6H
Dextrose 50%-Water [Dextrose 50% Syringe] 12.5 grams IV [id number] PRN
Glucagon [GlucaGen] 1 mg IM PRN PRN
Magnesium Hydroxide [Milk of Magnesia] 30 ml PO DAILYPRN PRN
Oxycodone [Roxicodone] 5 mg PO Q4HPRN PRN
Tamsulosin [Flomax] 0.4 mg PO DAILYPRN PRN
ipratropium bromide See Dose Instructions NASAL DAILYPRN PRN
01/31/25 16:08
ORTHOPEDIC CONSULT Routine
Consulting Provider: Gm Day
Was physician already notified: Yes
Reason for consult: L hip prosthesis dislocation
Activity As Directed
Activity Level: With Assistance
Bedside Glucose Monitoring As Directed
Frequency: AC&HS
Additional Instructions:: Change to q6h if pt on TPN, tube feeding or not eating
Bladder Scan As Directed
Follow Bladder Retention/Intermittent Cath Algorithm?: Yes
PRN if no void in __ hours: 6
Comment: if not voiding 6 hrs upon arrival to floor, bladder scan & follow algorithm
Intake/ Output As Directed
Frequency: Per unit guidelines
Pneumatic Compression Sleeves As Directed
Type: Knee high
Straight Cath As Directed
Frequency: Per Retention Algorithm
Additional Instructions: straight cath as needed per acute urinary retention algorithm for 24 hrs
Additional Instructions: for bladder scan greater than 400 mL
Vital Signs As Directed
Frequency: Per unit guidelines
DX Deep Vein Thrombosis Video Routine
01/31/25 16:30
Insulin Aspart Corrective Low [Novolog Flexpen-Low Resistance] See Protocol SC AC
01/31/25 20:00
Docusate Sodium [Colace] 100 mg PO BID
Oseltamivir Phosphate [Tamiflu] 30 mg PO BID
Sennosides [Senokot] 17.2 mg PO BID
02/01/25 06:00
Glycohemoglobin (HgbA1c) IN AM
02/01/25 08:00
Furosemide [Lasix] 40 mg PO DAILY
Metoprolol Xl [Toprol Xl] 25 mg PO DAILY
tiotropium bromide [Spiriva Respimat] 2 puff INH R DAILY
02/03/25 11:00
DC Protocol for Telemetry ONCE
Abnormal Lab Results
01/31/25
09:10
RBC 3.58 L 10^6/uL
(4.70-6.10)
Hgb 11.2 L g/dL
(13.0-18.0)
Hct 34.0 L %
(39.0-52.0)
MCV 95.0 H fL
(80.0-94.0)
MCH 31.3 H pg
(27.0-31.0)
MCHC 32.9 L g/dL
(33.0-37.0)
RDW 16.2 H %
(11.5-14.5)
Absolute Lymphs (auto) 0.7 L 10^3/uL
(1.2-3.4)
Neutrophils % 81.7 H %
(42.2-75.2)
Lymphocytes % 9.8 L %
(20.5-51.1)
ESR 52 H mm/hour
(0-20)
Sodium 133 L mmol/L
(135-145)
BUN 40 H mg/dl
(9-20)
Glucose 100 H mg/dl
(70-99)
Calcium 8.2 L mg/dl
(8.4-10.2)
C-Reactive Protein 49.00 H mg/L
(0.0-10.00)
Total Protein 5.8 L g/dl
(6.3-8.2)
Albumin 2.9 L g/dl
(3.5-5.0)
01/31/25 09:10
01/31/25 09:10
Vital Signs
Initial and Last Documented VS:
Initial Vital Signs
Temp Pulse Resp BP Pulse Ox
97.9 F 90 16 123/74 97
01/31/25 08:49 01/31/25 08:49 01/31/25 08:49 01/31/25 08:49 01/31/25 08:49
Last Documented Vital Signs
Temp Pulse Resp BP Pulse Ox
98.3 F 107 18 109/56 98
01/31/25 12:25 01/31/25 15:30 01/31/25 15:30 01/31/25 15:05 01/31/25 15:30
Procedures
<Zohra Ibrahim, DO - Last Filed: 01/31/25 12:41>
Moderate Sedation
ASA Risk Score: Class III
Chart and allergies reviewed: Yes
Consent for anesthesia obtained: Yes
Time out completed (validating right patient & procedure): Yes
Moderate Sedation Start Time(when first medication is given): 11:48
History of difficult intubation: No
Airway free of obstruction: Yes
Patient has a gag reflex: Yes
Patient is able to open mouth: Yes
Patient has no dentures: Yes
Patient has no loose teeth: Yes
Medication administered by Provider during Moderate Sedation: IV Propofol (mg)
Total dose administered: 40
Time drug administered: 11:49
Moderate Sedation Procedure End Time: 12:05
Joint/Fracture Reduction
Left Hip:
Indication for procedure:: dislocation
Procedure completed by: Ash Messer
Consent form signed: Yes
Anesthesia/sedation: Moderate sedation
Injury was: closed
Further treatement: no treatment needed
Post reduction exam: stable
Capillary Refill: normal
Normal distal neurovascular exam?: Yes
<Prateek Messer PA-C - Last Filed: 01/31/25 16:43>
MDM/Problems Addressed
MDM/Problems Addressed:
Unfortunately despite multiple reduction attempts were unable to relocate the left hip. Orthopedics was involved in the case I will plan to take the patient for operative intervention later this evening. He will ultimately require hospitalization
due to baseline ambulatory dysfunction, will need rehab after appropriate management of the hip is completed. He is also positive for influenza however not hypoxic
<Prateek Messer PA-C - Last Filed: 01/31/25 16:43>
*Pulse Oximetry
SaO2: 97
Oxygen Mode of Delivery: Room air
Patient hypoxic: no
*Critical Care Note
Total Time (30-74mins, 75-104mins- exclusive of procedures): Not Applicable
ED Attending Note
<Prateek Messer PA-C - Last Filed: 01/31/25 16:43>
-
Portions of this chart may have been created with voice recognition software.� Occasional wrong word or��sound alike� substitutions may have occurred due to the inherent limitations of voice recognition software.
<Zohra Ibrahim DO - Last Filed: 01/31/25 12:41>
ED Attending Note
Patient seen and examined by attending physician: Yes
I performed the substantive portion of visit, reviewed & personally made and approve the management plan that is documented in note by myself or EDGARD.: Yes
I performed a history and physical exam of patient and discussed management with resident, I reviewed resident's note and agree with documented findings and plan of care.: Yes
ED Attending Note:
84-year-old male with history of COPD, hypertension, hyperlipidemia, atrial fibrillation presenting to the emergency department with left hip pain after a fall. Patient is status post left hip replacement 2 weeks ago. Son was assisting patient
with transfer, and they fell to the ground with son falling on top of him. No report of any head injury or head strike. Patient arrives with left hip pain with obvious deformity. Additionally in the postop period, patient has had a cough and some
mild shortness of breath. Family also notes difficulty with managing patient at home. Had previously been in rehab and do not feel that he was ready to be discharged from rehab.
Vital signs on arrival are normal. On exam patient is resting comfortably, no acute distress, no respiratory distress. No signs of head injury or head trauma. Patient awake, alert, oriented. Patient has deformity to the left lower extremity with
concern for hip dislocation. Patient additionally seen and evaluated by [employer] senior court office assistant with x-ray obtained, confirming dislocation. Labs also obtained as well as viral swabs. Patient is flu positive, consistent with the patient's cough and
respiratory symptoms. In discussion with orthopedics, recommend reduction of the hip.
12:20 -difficulty with hip reduction. Initial success, however immediately would pop back out. 2 attempts made. Please see procedure note. Orthopedics made aware requesting a CT scan. Ultimate plan for admission for continued social work
consultation for placement to rehab facility
Discharge Plan
Departure
Patient Disposition: Admit
Date of Disposition: 01/31/25
Time of Disposition: 13:44
Admit to: Med/Surg
Presentation/result/management discussed w/ accepting MD/DO: Hospitalist
Discharge Problem:
Dislocation of internal left hip prosthesis, initial encounter, Influenza A
Interventions
Interventions:
*General Assessment Last Done: 01/31/25 08:49
*Neglect/Abuse Screening Last Done: 01/31/25 08:49
*ED COVID-19 Vaccine History Last Done: 01/31/25 08:58
*ED Influenza Vaccine History Last Done: 01/31/25 08:58
[facility] Fall Risk Assessment Tool Last Done: 01/31/25 10:14
*Risk Screen - Suicide (C-SSRS) Last Done: 01/31/25 09:00
*Nursing Disposition Last Done: 01/31/25 16:01
ED-Musculoskeletal Assessment Last Done: 01/31/25 09:10
ED- Neurological Assessment Last Done: 01/31/25 09:10
ED-Skin Assessment Last Done: 01/31/25 09:10
Discharge Date and Time
Discharge Date/Time: 01/31/25 16:03
[2025-01-31 09:46] LABS: ALT (SGPT) 15 U/L (0-50); AST (SGOT) 52 U/L (17-59); Albumin 2.9 g/dl (3.5-5.0); Alkaline Phosphatase 72 U/L (38-126); Blood Urea Nitrogen 40 mg/dl (9-20); Calcium 8.2 mg/dl (8.4-10.2); Carbon Dioxide 28 mmol/L (22-30); Chloride 99 mmol/L (98-107); Estimated Creatinine Clearance 51 ml/min; Glucose 100 mg/dl (70-99); Potassium 3.6 mmol/L (3.5-5.1); Sodium 133 mmol/L (135-145); Total Protein 5.8 g/dl (6.3-8.2); eGFR > 60.00
[2025-01-31 09:52] LABS: COVID-19 Antigen Negative (Negative)
--- NOTE | 2025-01-31 10:12 | EDRN ---
Male [email or web address] placed on pt.
--- NOTE | 2025-01-31 10:15 | EDRN ---
No card for door. will have to find card indicator for his door.
--- NOTE | 2025-01-31 12:27 | EDRN ---
Proceedure was not successful and pt is unable to sit or stand. Pt remains w/ hip displaced at prothesis. Pt to go to CT for more pix of hip.
--- NOTE | 2025-01-31 14:02 | HPS.HSE ---
Addendum entered and electronically signed by Dmitriy Stearns MD 01/31/25 14:57:
Flu A POS in elderly in patient with multiple comorbidities
- will initiate Tamiflu
Original Note:
Family Physician
-
Family Physician: Jameel Smith
Chief Complaint
-
Fall , Lt hip pain
S/p D18 Lt JOHANNA
History of Present Illness
HPI
84M Recent admission ( 01/26/25 - 01/28/25) Dx acute HFrEF
PMHX : CAD, HFrEF, DM, Asthma, COPD, HTN and Hypercholesterolemia, HX Lt THR seen at ER:
- for evaluation of left hip pain after falling
- assisted by his son when he lost his balance and fell and his son subsequently fell on top of him.
- 18 days status postL THR ( 01/14/25 - Dr. Day.)
- He reports severe pain to the left hip.
Of note:
- was admitted to this hospital 1 week ago for left lower extremity cellulitis and continues on antibiotics at this time.
- Also on Xarelto for DVT prophylaxis
Medical History
Past Medical History
Past Medical History: Reports Other
Additional Past Medical History:
Coronary Atherosclerosis
Paroxysmal Atrial Fibrillation
Hypertension
Hyperlipidemia
Diabetes Mellitus, Type II
Asthma / COPD
Fatty Liver Disease
BPH
Spinal Stenosis
Past Surgical History: Reports Other
Additional Past Surgical History:
Bilateral Total Knee Replacements (2010)
Bilateral Hip Replacements (Right 2013, Left 2024)
Social History
Tobacco: Former Smoker
Alcohol: Occasional
Family History
Family History: Not pertinent
Allergies / Home Medications
Allergies reflects when Allergies were last updated in [facility].
Home Medications with original date entered in [facility]
Allergy/Medication List:
Allergies
Allergy/AdvReac Type Severity Reaction Status Date / Time
No Known Allergies Allergy Verified 01/26/25 11:44
Home Medications
atorvastatin 40 mg tablet 40 mg PO HS High cholesterol 04/08/13
albuterol sulfate 90 mcg/actuation aerosol inhaler (Ventolin HFA) 1 puff inhalation R Q6HPRN PRN shortness of breath 08/03/21
allopurinol 100 mg tablet 100 mg PO DAILY 12/17/24
ezetimibe 10 mg tablet 10 mg PO HS High Cholesterol 12/17/24
famotidine 20 mg tablet 20 mg PO HS Gastrointestinal Issue 12/17/24
fluticasone propionate 50 mcg/actuation nasal spray,suspension 1 spray intranasal DAILYPRN PRN congestion 12/17/24
ipratropium bromide 42 mcg (0.06 %) nasal spray 2 spray intranasal DAILYPRN PRN ALLERGIES 12/17/24
metoprolol succinate 25 mg tablet,extended release 24 hr (Toprol XL) 25 mg PO DAILY Heart Disease/Condition 12/17/24
silodosin 4 mg capsule 4 mg PO QPM Urinary Issue 12/17/24
tiotropium bromide 1.25 mcg/actuation mist for inhalation (Spiriva Respimat) 2 puff inhalation R DAILY Lung/Breathing Issues 12/17/24
acetaminophen 500 mg tablet (Tylenol Extra Strength) 1,000 mg PO Q6HPRN PRN MILD PAIN 01/26/25
docusate sodium 100 mg capsule (Colace) 100 mg PO BIDPRN PRN CONSTIPATION 01/26/25
oxycodone 5 mg tablet 5 mg PO Q6H PRN SEVERE PAIN 01/26/25
rivaroxaban 20 mg tablet (Xarelto) 20 mg PO HS Blood Clot Prevention/Tx 01/26/25
Review of Systems
-
Constitutional: Reports No Symptoms
EENT: Reports No Symptoms
Respiratory: Reports No Symptoms
Cardiac: Reports No Symptoms
Abdomen/GI: Reports No Symptoms
: Reports No Symptoms
Musculoskeletal: Reports See HPI
Skin: Reports No Symptoms
Neurological: Reports No Symptoms
Endocrine: Reports No Symptoms
Hematologic/Lymphatic: Reports No Symptoms
Psych: Reports No Symptoms
Physical Exam
Vital Signs
Vital Signs
Temp Pulse Resp BP Pulse Ox
98.3 F 89 16 110/53 97
01/31/25 12:25 01/31/25 12:45 01/31/25 12:45 01/31/25 12:30 01/31/25 12:45
Physical Exam
General: Comfortable and Other (drowsy s/p Dilaudid )
HEENT: Anicteric and Moist mucous membranes; No Oxygen
Respiratory: Clear and Non Labored Respirations; No Rales
Cardiac: S1/S2 and Regular Rhythm
GI: Soft and Non Tender
Genito-urinary: Other (Scrotal swelling)
Musculoskeletal: No Clubbing, No Cyanosis and Other (+4 edema LLE, +2 edema RLE)
Skin: Other (Lt leg wrapped under ANN bandage )
Neuro: Awake, Alert, Oriented and Nonfocal/grossly intact
Psych: Calm
Laboratory Results
-
01/31/25 09:10
01/31/25 09:10
Laboratory Results
Total Bilirubin 1.3 mg/dl (0.2-1.3) 01/31/25 09:10
AST 52 U/L (17-59) 01/31/25 09:10
ALT 15 U/L (0-50) 01/31/25 09:10
Alkaline Phosphatase 72 U/L (38-126) 01/31/25 09:10
Impression/Plan
-
Vital Signs
Temp Pulse Resp BP Pulse Ox
98.3 F 89 16 110/53 97
01/31/25 12:25 01/31/25 12:45 01/31/25 12:45 01/31/25 12:30 01/31/25 12:45
01/27/25 01/31/25
06:58 09:10
WBC 16.8 H 7.1
Hgb 11.2 L
Plt Count 239 D
01/31/25
09:10
Sodium 133 L
Potassium 3.6
Carbon Dioxide 28
BUN 40 H
Creatinine 1.0
eGFR > 60.00
Glucose 100 H
Albumin 2.[address] Sincere
Superior and posterior dislocation of the left femoral prosthesis from the acetabular cup component.
Multiple small periprosthetic fractures of the left acetabular rim located circumferentially about the acetabular prosthesis.
Hematoma anterior to the left hip joint space.
C-shaped lower attenuation but still complex fluid collection lateral and posterior to the left hip, which may represent a seroma or nonacute hematoma.
Small curvilinear calcification adjacent to the left greater femoral trochanter. Possibilities include an avulsion fracture or calcific tendinosis.
Last hospitalist admission: 01/26/25 - 01/28/25
DC DXs:
Acute HFrEF
Orthostatic hypotension
Sepsis due to left lower extremity cellulitis with organ dysfunction of hyperbilirubinemia
Mild hyponatremia
Mild urinary retention
ASSESSMENT & PLAN
Pending Rx reconciliation
Fall
Complicated by L hip prosthesis dislocation
- failed closed reduction x 2 - Ortho aware, and are reviewing
- NPO except Meds
- to proceed with OR tonight per ortho
- Hold Xarelto - last dose this AM
- Ortho consulted
HFpEF
-Echo Sep 2024: EF 55 to 60%. Moderate aortic stenosis with mild aortic regurgitation
- c/w PO Lasix 40mg daily
- Monitor Is&Os and Daily Weights
- Known to DCA acrd
Orthostatics hypotension 2/2 IV diuresis
s/p recent sepsis due to LLE Cellulitis
- c/w Cephalexin
BPH with urinary retention
-cont with Flomax
- bladder scan protocol
Paroxysmal Atrial Fibrillation
- Hold Xarelto
- on metoprolol for rate control
Essential Hypertension
-Continue metoprolol
Hyperlipidemia
- on atorvastatin and ezetimibe
Diabetes Mellitus, Type II
-Hgba1c 6.4
- add ISS low
Asthma / COPD
-Continue Spiriva
DVT Proph: SCD , holding
Code Status: Full Code
IP TLM
--- NOTE | 2025-01-31 14:11 | EDRN ---
Pt to go to OR later today.
--- NOTE | 2025-01-31 14:27 | EDRN ---
Dr. Stearns in room w/ pt at this time.
--- NOTE | 2025-01-31 15:18 | EDRN ---
Just TT'd Dr. Stearns that Med Rec just completed.
[2025-01-31 15:20] LABS: C-Reactive Protein 49.00 mg/L (0.0-10.00)
--- NOTE | 2025-01-31 15:56 | CM ---
Chart reviewed. Spoke with pt , his dtr Federica at bedside and dtr Trisha on the phone
He lives with Trisha in the basement apartment of her home
12 steps down to his apartment
Needs assist with all ADLs
DME RW cane w/c and raised toilet
Waiting for left hip surgery today
PCP Jameel Smith
[facility]
hx of [facility] and [facility]
hx of [facility] ( pt does NOT want to return)
pt and 2 dtrs agree that he would need to go to SNF post surgery
[facility] in [facility] and [facility]
CM sent referrals via [facility] to [facility]
Cm will continue to follow up for dcp needs
--- NOTE | 2025-01-31 16:15 | PTCARENOTE ---
Pt came to room on stretcher, pulled over to bed, CHG bath given. Male purewick in place. PACU called to get report and pt moved to PACU.
[2025-01-31 18:08] LABS: Glucose - Point of Care 89 mg/dl (70-99)
[2025-01-31] MEDS: NOVOLOG FLEXPEN-LOW RESISTANCE SC (18:25)
[2025-01-31] MEDS: TYLENOL PO (18:25)
--- NOTE | 2025-01-31 18:41 | PTCARENOTE ---
Pt back from OR, drowsy but AOx3, thirsty, refused food at this time. Denies pain. VSS.
[2025-01-31] MEDS: KEFLEX 500 MG PO ×2 (18:53→23:04)
[2025-01-31] MEDS: TAMIFLU 30 MG PO (19:36)
[2025-01-31] MEDS: SENOKOT 17.2 MG PO (19:36)
[2025-01-31] MEDS: TYLENOL 650 MG PO ×2 (19:36→23:05)
[2025-01-31] MEDS: COLACE 100 MG PO (19:36)
[2025-02-01] VITALS (9 sets, daily range): BP systolic 88–140; BP diastolic 61–71; PULSE 61–74; O2SAT 93; BMI 26.5
[2025-02-01] MEDS: TYLENOL 650 MG PO ×5 (05:00→20:29)
[2025-02-01] MEDS: KEFLEX 500 MG PO ×4 (05:01→20:30)
--- NOTE | 2025-02-01 06:15 | CON.ORTHO ---
Consultation
-
Date/Time Consultation Requested: Feb 04
Date/Time Consultation Performed: Feb 04
Requesting Provider: Daryn
Performing Provider: To Day
Reason for Consultation: Dislocated LEFT JOHANNA
Consultation - Orthopedics
History
History of Present Illness:
84 y/o male with a recent admission (01/26/25 - 01/28/25) Dx acute HFrEF and LLE cellulitis (s/p Left JOHANNA Feb 04- Shay). I had seen him in consultation at that time. Recommended continue treatment per the primary team/cards. Tx of assumed
cellulitis was IV ABX and swelling control. He continues on ABX. He was D/c on Jan to resume scheduled follow-up with orthopedics. unfortunately, yesterday, he sustained a mechanical fall while being assisted by his son. He then began
complaining of immediate intractable pain in the left hip. Of note he is on maintenance Xarelto for DVT prophylaxis. reduction of his left JOHANNA in the ED was unsuccessful. he was taken to the OR last evening by Dr. Day with a successful
reduction of his JOHANNA. He is back on the hospitalist service. given his recent left JOHANNA and now dislocation with successful reduction we were officially consulted.
Past Medical History:
Coronary Atherosclerosis
Paroxysmal Atrial Fibrillation
Hypertension
Hyperlipidemia
Diabetes Mellitus, Type II
Asthma / COPD
Fatty Liver Disease
BPH
Spinal Stenosis
Past Surgical History:
Bilateral Total Knee Replacements (2010)
Bilateral Hip Replacements (Right 2013, Left 2024)
Social History:
Tobacco: Former Smoker
Alcohol: Occasional
Family History:
Not pertinent
ROS:
12 point negative except for those mentioned in the HPI
Allergies / Home Medications
Allergy/AdvReac Type Severity Reaction Status Date / Time
No Known Allergies Allergy Verified 01/31/25 08:49
�Medication �Instructions �Recorded
atorvastatin 40 mg tablet 40 mg PO HS High cholesterol 02/26/14
albuterol sulfate 90 mcg/actuation 1 puff inhalation R Q6HPRN PRN 08/03/21
aerosol inhaler (Ventolin HFA) shortness of breath
allopurinol 100 mg tablet 100 mg PO DAILY Gout 12/17/24
ezetimibe 10 mg tablet 10 mg PO HS High Cholesterol 12/17/24
famotidine 20 mg tablet 20 mg PO HS Gastrointestinal Issue 12/17/24
fluticasone propionate 50 1 spray intranasal DAILYPRN PRN 12/17/24
mcg/actuation nasal congestion
spray,suspension
ipratropium bromide 42 mcg (0.06 2 spray intranasal DAILYPRN PRN 12/17/24
%) nasal spray ALLERGIES
metoprolol succinate 25 mg 25 mg PO DAILY Heart 12/17/24
tablet,extended release 24 hr Disease/Condition
(Toprol XL)
silodosin 4 mg capsule 4 mg PO QPM Urinary Issue 12/17/24
tiotropium bromide 1.25 2 puff inhalation R DAILY 12/17/24
mcg/actuation mist for inhalation Lung/Breathing Issues
(Spiriva Respimat)
acetaminophen 500 mg tablet 1,000 mg PO Q6HPRN PRN MILD PAIN 01/26/25
(Tylenol Extra Strength)
docusate sodium 100 mg capsule 100 mg PO BIDPRN PRN CONSTIPATION 01/26/25
(Colace)
oxycodone 5 mg tablet 5 mg PO Q6H PRN SEVERE PAIN 01/26/25
rivaroxaban 20 mg tablet (Xarelto) 20 mg PO HS Blood Clot 01/26/25
Prevention/Tx
cephalexin 500 mg capsule 500 mg PO Q6H 5 days #20 caps 01/28/25
furosemide 40 mg tablet (Lasix) 40 mg PO DAILY #30 tabs 01/28/25
Vital Signs / Lab Results
Temp Pulse Resp BP Pulse Ox
97.3 F 79 16 123/67 95
02/01/25 03:01 02/01/25 03:01 02/01/25 03:01 02/01/25 03:01 02/01/25 03:01
01/31/25 09:10
01/31/25 09:10
Assessment / Plan
PE: Currently at bedrest. Abductor pillow in place. LLE. healing incision noted over the posterior left thigh from recent JOHANNA. No overt clinical signs of infection here. Mild to moderate edema with some ecchymosis noted. Deferred range of motion
due to recent dislocation and reduction. Knee nontender. Persistent swelling and atrophic changes of the LLE. DNVI LLE
Diagnostics:
CT Of the pelvis and left hip did reveal a dislocated left JOHANNA with small periarticular fractures of the acetabulum
Fluoroscopic images from the OR reveal a left JOHANNA reduced anatomically
Impression: Dislocated LEFT JOHANNA with successful reduction
Plan: As Dr. Day discussed with the patient yesterday, I again reiterated the plan. He will remain in his abductor pillow while in bed. He may be WBAT B/L LEs on a walker. PT/OT with strict THPs. Pain control. Continue treatment per the primary
team/cards. Continue ABX for his improving LLE cellulitis. Compression if appropriate, with elevation. Continue maintenance Xarelto for DVT prophylaxis, or per cardiology. Once medically optimized and discharged he will follow-up with Orthopaedics
in about 10 days, which needs to be scheduled. Orthopaedics to follow along peripherally for now.
[2025-02-01] MEDS: TOPROL XL 25 MG PO (07:27)
[2025-02-01] MEDS: TAMIFLU 30 MG PO ×2 (07:27→20:29)
[2025-02-01] MEDS: LASIX 40 MG PO (07:28)
--- NOTE | 2025-02-01 07:32 | W.PN.HOSP.TC ---
Today's Communication/Plan
-
Restart home xarelto
pending PT recs and placement with flu+
pain management
supportive flu measures
Assessment / Plan
Assessment / Plan
84yoM PMH CAD, paroxysmal afib, HFrEF, T2DM, asthma, COPD, HTN, HLD, THR 12.4.25, recent admission for LLE cellulitis with sepsis and acute on chronic HFrEF presenting from fall at home with L hip dislocation.
AFVSS. Hip was found to be dislocated yesterday and pt brought to OR yesterday. Tested positive for Flu A today; ESR and CRP elevated in setting of flu. Ortho and PT evaluate appropriate for SNF vs rehab. CBC WNL. BUN mildly elevated 40, Cr at
baseline 1.0, continue to monitor for AVERY. Discuss with CM if pt can go to SNF Flu+.
#hip dislocation
- Ortho replaced last night in OR
- PT/OT recs. Most likely SNF
- Continue pain management
#Influenza A
- Continue tamiflu
- Cough suppressant. Continue supportive measures
#paroxysmal afib
- home xarelto restarted after OR
#COPD
#HFrEF
- continue home medications
Code: Full
Diet: diabetic
Dispo: SNF pending flu allowance
DVT prophylaxis: xarelto
Anticipated Discharge: Within 24 hours
Subjective/Interval History
-
Date of Service: February 01, 2025
Pt reports feeling well today. He reports a mild cough, otherwise no complaints. Pain is managed well on current regimen. He feels comfortable, healing from OR last night appropriately. 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
respiratory compromise.
Objective Data
-
Vital Signs:
Vital Signs
Temp Pulse Resp BP Pulse Ox
97.3 F 79 16 123/67 95
02/01/25 03:01 02/01/25 03:01 02/01/25 03:01 02/01/25 03:01 02/01/25 03:01
I&O
01/31/25 02/01/25 02/02/25
06:59 06:59 06:59
Output Total 500 / 500
Balance -500 / -500
Review of Systems
-
History Source: Patient
Constitutional: Reports No Symptoms
EENT: Reports No Symptoms Reported
Respiratory: Reports Cough
Cardiac: Reports No Symptoms
Abdomen/GI: Reports No Symptoms (diarrhea prior days, unsure if today)
Genitourinary: Reports No Symptoms (reports having condom cath in place)
Musculoskeletal: Reports Other (Hip pain tolerable)
Skin: Reports No Symptoms
Neuro: Reports No Symptoms
Physical Exam
-
General: Well Developed, Well Nourished, No Apparent Distress and Comfortable
HEENT: Normocephalic, Atraumatic and Moist Mucous Membranes
Respiratory: Clear to Auscultation and Non Labored Respirations
Cardiac: Regular Rhythm and S1/S2
GI: Soft, Nontender and Nondistended
Genito-urinary: Other (condom catheter in place)
Musculoskeletal: No Edema and Edema, Left Lower Extrem (LLE with ecchymoses , L foot red and edematous)
Skin: Warm and Dry
Neuro: AO x 3 and Nonfocal/Grossly Intact
Psych: Calm
[2025-02-01] MEDS: COLACE PO (07:33)
[2025-02-01] MEDS: SENOKOT PO ×2 (07:34→20:32)
[2025-02-01] MEDS: SPIRIVA RESPIMAT 2.5 MCG 2 PUFF INH (07:55)
[2025-02-01 08:28] LABS: Glucose - Point of Care 124 mg/dl (70-99)
[2025-02-01] MEDS: NOVOLOG FLEXPEN-LOW RESISTANCE SC ×2 (08:29→13:25)
[2025-02-01 08:54] LABS: Hematocrit 32.2 % (39.0-52.0); Hemoglobin 10.3 g/dL (13.0-18.0); Mean Corp Hgb Conc. 32.0 g/dL (33.0-37.0); Mean Corpuscular Volume 95.5 fL (80.0-94.0); Platelet Count 242 10^3/uL (130-400); Red Cell Dist. Width 16.1 % (11.5-14.5)
[2025-02-01 09:44] LABS: Blood Urea Nitrogen 41 mg/dl (9-20); Calcium 7.9 mg/dl (8.4-10.2); Carbon Dioxide 26 mmol/L (22-30); Chloride 100 mmol/L (98-107); Estimated Creatinine Clearance 47 ml/min; Glucose 119 mg/dl (70-99); Potassium 4.3 mmol/L (3.5-5.1); Sodium 133 mmol/L (135-145); eGFR > 60.00
[2025-02-01 10:28] LABS: Glycohemoglobin (HgbA1c) 5.9 % (4.0-5.9)
[2025-02-01 12:15] LABS: Glucose - Point of Care 141 mg/dl (70-99)
[2025-02-01] MEDS: ROBITUSSIN DM 5 ML PO (13:27)
--- NOTE | 2025-02-01 16:00 | CM ---
Chart reviewed. Patient medically stable for discharge
Followed up w/ SNF referrals. [facility] unable to accept as they do not participate in Medicare waiver program. Patient was prev at [facility] from 01/15-01/19 and will need a facility that participates in waiver as patient does not have 3 nights at
this time
Spoke w/ [facility] admissions, can offer patient a bed tomorrow. Updated daughter, Trisha, agreeable to [facility]
Update to physician resident
IMM verbally reviewed, copy on chart
Patient will need ambulance transport
[facility]
Report: [phone]

Plan: D/c to [facility] tomorrow
[2025-02-01 16:26] LABS: Glucose - Point of Care 190 mg/dl (70-99)
[2025-02-01] MEDS: NOVOLOG FLEXPEN-LOW RESISTANCE 1 UNITS SC (16:53)
[2025-02-01] MEDS: ROBITUSSIN DM 10 ML PO ×2 (16:54→23:04)
[2025-02-01] MEDS: XARELTO 20 MG PO (17:12)
[2025-02-01] MEDS: COLACE 100 MG PO (20:29)
[2025-02-01 21:57] LABS: Glucose - Point of Care 162 mg/dl (70-99)
[2025-02-02] MEDS: TYLENOL 650 MG PO ×3 (00:15→07:56)
[2025-02-02] MEDS: KEFLEX 500 MG PO ×2 (03:31→10:53)
[2025-02-02] MEDS: TESSALON PERLES 100 MG PO (03:31)
[2025-02-02 05:22] VITALS: BP 128/65
[2025-02-02] MEDS: SPIRIVA RESPIMAT 2.5 MCG 2 PUFF INH (07:13)
--- NOTE | 2025-02-02 07:28 | W.PN.UPDATE ---
Update Note
Progress Note Update
Status post closed reduction left total hip arthroplasty January 30, [address] Raine Walker. Patient relates that his hip feels great and his cellulitis in his legs seems to be improving. [facility] to [facility]. Left
hip no pain with hip flexion to 90 degrees, internal rotation 10 degrees, external rotation 30 degrees all without pain. No shortening or rotational deformity noted. Distal neurovascular intact. Minimal edema in the lower extremities without
significant erythema. Patient should continue with abductor pillow while in bed. Formal physical therapy. Follow-up with orthopedics 2 to 3 weeks to check his progress. Orthopedics to sign off.
--- NOTE | 2025-02-02 07:36 | W.PN.HOSP.TC ---
Today's Communication/Plan
-
Dc today
Continue supportive measures
Assessment / Plan
Assessment / Plan
84yoM PMH CAD, paroxysmal afib, HFrEF, T2DM, asthma, COPD, HTN, HLD, THR 12.4.25, recent admission for LLE cellulitis with sepsis and acute on chronic HFrEF presenting from fall at home with L hip dislocation.
AFVSS. Hip was found to be dislocated yesterday and pt brought to OR yesterday. Tested positive for Flu A today; ESR and CRP elevated in setting of flu. Ortho and PT evaluate appropriate for SNF vs rehab. CBC WNL. BUN mildly elevated 40, Cr at
baseline 1.0, continue to monitor for AVERY. Discuss with CM if pt can go to SNF Flu+.
AFVSS. Continue on keflex, pain control, cough suprpessant. Restarted home xarelto yesterday after ortho cleared. Plan for SNF today.
#hip dislocation
- Ortho replaced last night in OR
- PT/OT recs. Most likely SNF
- Continue pain management
#Influenza A
#cough
- Continue tamiflu
- Cough suppressant. Continue supportive measures
#paroxysmal afib
- home xarelto restarted after OR
#COPD
#HFrEF
- continue home medications
Code: Full
Diet: diabetic
Dispo: SNF pending flu allowance
DVT prophylaxis: xarelto
Anticipated Discharge: Today
Subjective/Interval History
-
Date of Service: February 02, 2025
Pt reports feeling well today without hip pain. He is complaining mostly of cough.
Objective Data
-
Labs:
Laboratory Results
02/02/25
06:58
WBC Pending
Hgb Pending
Hct Pending
Plt Count Pending
Sodium Pending
Potassium Pending
Chloride Pending
Carbon Dioxide Pending
BUN Pending
Creatinine Pending
Glucose Pending
Calcium Pending
Vital Signs:
Vital Signs
Temp Pulse Resp BP Pulse Ox
97.7 F 77 16 128/65 97
02/02/25 05:22 02/02/25 07:16 02/02/25 07:16 02/02/25 05:22 02/02/25 07:16
I&O
02/01/25 02/02/25 02/03/25
06:59 06:59 06:59
Output Total 500 / 500 500 / 500
Balance -500 / -500 -500 / -500
Physical Exam
-
General: Well Developed, Well Nourished, No Apparent Distress and Comfortable
HEENT: Normocephalic, Atraumatic and Moist Mucous Membranes
Respiratory: Rhonchi (cough with deep breaths, cleared after cough), Non Labored Respirations and Other
Cardiac: Regular Rhythm and S1/S2
GI: Soft, Nontender and Nondistended
Musculoskeletal: Other (ecchymoses L knee, no pain to L hip palpation, LLE cellulitis healing appropriately with continued edema)
Skin: Warm and Dry
Neuro: AO x 3 and Nonfocal/Grossly Intact
Psych: Calm
[2025-02-02 07:46] LABS: Glucose - Point of Care 131 mg/dl (70-99)
[2025-02-02] MEDS: NOVOLOG FLEXPEN-LOW RESISTANCE SC ×2 (07:53→12:29)
[2025-02-02] MEDS: TAMIFLU 30 MG PO (07:54)
[2025-02-02] MEDS: SENOKOT 17.2 MG PO (07:54)
[2025-02-02] MEDS: COLACE PO (07:55)
[2025-02-02] MEDS: TOPROL XL 25 MG PO (07:55)
[2025-02-02] MEDS: LASIX 40 MG PO (07:55)
[2025-02-02 08:08] VITALS: BP 124/54
[2025-02-02] MEDS: MUCINEX 1200 MG PO (08:26)
[2025-02-02 08:40] LABS: Hematocrit 33.1 % (39.0-52.0); Hemoglobin 11.0 g/dL (13.0-18.0); Mean Corp Hgb Conc. 33.2 g/dL (33.0-37.0); Mean Corpuscular Volume 92.7 fL (80.0-94.0); Platelet Count 260 10^3/uL (130-400); Red Cell Dist. Width 16.1 % (11.5-14.5)
[2025-02-02 09:09] LABS: Blood Urea Nitrogen 54 mg/dl (9-20); Calcium 8.2 mg/dl (8.4-10.2); Carbon Dioxide 27 mmol/L (22-30); Chloride 97 mmol/L (98-107); Estimated Creatinine Clearance 37 ml/min; Glucose 154 mg/dl (70-99); Potassium 3.4 mmol/L (3.5-5.1); Sodium 132 mmol/L (135-145); eGFR 48.95
--- NOTE | 2025-02-02 10:21 | CM ---
Addendum entered by Ayleen Adair 02/02/25 11:39:
Spoke chad/ [facility] who stated patient is still under 30 day waiver from previous admission and no new waiver request is needed at this time
Updated Jyotsna
Original Note:
Spoke chad/ J[facility]otsna/[facility] admissions, informed that patient will need to admit to SNF under waiver.
CM called [facility], spoke lewis Bishop, requested clinicals to be faxed. Fax sent to [phone]
CM will await call back regarding waiver approval
Ambulance transport forms on chart
[facility] SNF
Report: [phone]

Plan: D/c to [facility] today
[2025-02-02] MEDS: LR 1000 IV (11:13)
[2025-02-02] MEDS: TYLENOL PO (12:41)
[2025-02-02] MEDS: KCL 40 MEQ PO (13:17)
--- NOTE | 2025-02-02 13:35 | W.DCSUMMARY ---
Documented by User: Anayeli Lentz MD, Resident 02/02/25 13:58
Discharge Summary
Discharge Data
Date of Admission: 01/31/25
Date of Discharge: 02/02/25
-
Pending Results: No
Hospital Course
84yoM PMH CAD, paroxysmal afib, HFrEF, T2DM, asthma, COPD, HTN, HLD, THR 12.4.25, recent admission for LLE cellulitis with sepsis and acute on chronic HFrEF presenting from fall at home.
AFVSS. Hip was found to be dislocated on presentation, and pt brought to OR for relocation after attempts in ED. Tested positive for Flu A; ESR and CRP elevated in setting of flu. Ortho and PT evaluate appropriate for SNF vs rehab, determined best
for SNF. CBC WNL. BUN mildly elevated 40, Cr at baseline 1.0 increased to Cr 1.4 BUN 54 on day of discharge. PO fluids encouraged. Continued keflex from dx cellulitis from prior admission 01/26- to hit the 5 days total. Continued home medications.
Restarted home xarelto 02/01. Managed pain with tylenol and as needed oxycodone. Started on tamiflu and given supportive tx guaifenesin DM.
Repeat CMP at SNF and follow renal function for resolution of AVERY.
Discharge Plan
-
Patient Disposition: Fdc/SNF
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
Influenza positive with cough
Left lower extremity cellulitis (present on arrival)
Condition: Fair
Diet: Diabetic, Carb Controlled and No added salt
Activity: As tolerated
Driving Restrictions: Not until seen by your Dr
Blood Work: BMP in 2 days to reassess kidney function
Others Tests: Repeat imaging with orthopedist in office
Specialty Instructions: Weigh Daily- Call MD for wt gain/loss 3 lbs overnight/5 lbs in 1 week
Referrals:
Jameel Smith MD [Family Provider, Internal Medicine]
Gm Day MD [Active, Orthopedics] - in two to three weeks
Additional Discharge Medication Instructions: Tylenol as needed for pain
Hold Lasix due to renal insufficiency, repeat BMP on 02/04, resume Lasix as previously prescribed if creatinine near baseline (0.8-1)
Continue Tamiflu for 3 more days
Prescriptions:
New
guaifenesin 600 mg Tablet Extended Release 12hr
1,200 mg PO Q12 Qty: 10 0RF
oseltamivir 30 mg Capsule
30 mg PO BID 3 Days Qty: 6 0RF
Continued
atorvastatin 40 MG tablet
40 mg PO HS
albuterol sulfate [Ventolin HFA] 1 PUFF HFA aerosol inhaler
1 puff inhalation R Q6HPRN PRN (Reason: shortness of breath)
allopurinol 100 mg Tablet
100 mg PO DAILY
famotidine 20 mg Tablet
20 mg PO HS
metoprolol succinate [Toprol XL] 25 mg Tablet Extended Release 24 Hr
25 mg PO DAILY
ipratropium bromide 42 mcg (0.06 %) Donaldson,Non-Aerosol
2 spray INTRANASAL DAILYPRN PRN (Reason: ALLERGIES)
fluticasone propionate 50 mcg/actuation Donaldson,Suspension
1 spray INTRANASAL DAILYPRN PRN (Reason: congestion)
ezetimibe 10 mg Tablet
10 mg PO HS
silodosin 4 mg Capsule
4 mg PO QPM
Spiriva Respimat 1.25 mcg/actuation Mist
2 puff INHALATION R DAILY
Xarelto 20 mg Tablet
20 mg PO HS
docusate sodium [Colace] 100 mg capsule
100 mg PO BIDPRN PRN (Reason: CONSTIPATION)
oxycodone 5 mg tablet
5 mg PO Q6H PRN (Reason: SEVERE PAIN)
acetaminophen [Tylenol Extra Strength] 500 mg Tablet
1,000 mg PO Q6HPRN PRN (Reason: MILD PAIN)
Held
furosemide [Lasix] 40 mg tablet
40 mg PO DAILY Qty: 30 0RF
Hold Instructions: Resume on 02/05/25. If renal function at baseline on BMP 02/04
Discontinued
cephalexin 500 mg capsule
500 mg PO Q6H 5 Days Qty: 20 0RF
Discharge Orders:
Discharge Patient (As Directed); Ordered 02/02/25
Ordered By: Anayeli Lentz
Discharge Date and Time
Discharge Date/Time: 02/02/25 13:44
Print Language: CITIZ[place]

Documented by User: Brian Man DO 02/02/25 14:03
Discharge Summary
Discharge Data
Date of Admission: 01/31/25
Date of Discharge: 02/02/25
Total time spent discharging patient (in min): 34
Discharge Plan
-
Patient Disposition: Fdc/SNF
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
Influenza positive with cough
Left lower extremity cellulitis (present on arrival)
Condition: Fair
Diet: Diabetic, Carb Controlled and No added salt
Activity: As tolerated
Driving Restrictions: Not until seen by your Dr
Blood Work: BMP in 2 days to reassess kidney function
Others Tests: Repeat imaging with orthopedist in office
Specialty Instructions: Weigh Daily- Call MD for wt gain/loss 3 lbs overnight/5 lbs in 1 week
Referrals:
Jameel Smith MD [Family Provider, Internal Medicine]
Gm Day MD [Active, Orthopedics] - in two to three weeks
Additional Discharge Medication Instructions: Tylenol as needed for pain
Hold Lasix due to renal insufficiency, repeat BMP on 02/04, resume Lasix as previously prescribed if creatinine near baseline (0.8-1)
Continue Tamiflu for 3 more days
Prescriptions:
New
guaifenesin 600 mg Tablet Extended Release 12hr
1,200 mg PO Q12 Qty: 10 0RF
oseltamivir 30 mg Capsule
30 mg PO BID 3 Days Qty: 6 0RF
Continued
atorvastatin 40 MG tablet
40 mg PO HS
albuterol sulfate [Ventolin HFA] 1 PUFF HFA aerosol inhaler
1 puff inhalation R Q6HPRN PRN (Reason: shortness of breath)
allopurinol 100 mg Tablet
100 mg PO DAILY
famotidine 20 mg Tablet
20 mg PO HS
metoprolol succinate [Toprol XL] 25 mg Tablet Extended Release 24 Hr
25 mg PO DAILY
ipratropium bromide 42 mcg (0.06 %) Donaldson,Non-Aerosol
2 spray INTRANASAL DAILYPRN PRN (Reason: ALLERGIES)
fluticasone propionate 50 mcg/actuation Donaldson,Suspension
1 spray INTRANASAL DAILYPRN PRN (Reason: congestion)
ezetimibe 10 mg Tablet
10 mg PO HS
silodosin 4 mg Capsule
4 mg PO QPM
Spiriva Respimat 1.25 mcg/actuation Mist
2 puff INHALATION R DAILY
Xarelto 20 mg Tablet
20 mg PO HS
docusate sodium [Colace] 100 mg capsule
100 mg PO BIDPRN PRN (Reason: CONSTIPATION)
oxycodone 5 mg tablet
5 mg PO Q6H PRN (Reason: SEVERE PAIN)
acetaminophen [Tylenol Extra Strength] 500 mg Tablet
1,000 mg PO Q6HPRN PRN (Reason: MILD PAIN)
Held
furosemide [Lasix] 40 mg tablet
40 mg PO DAILY Qty: 30 0RF
Hold Instructions: Resume on 02/05/25. If renal function at baseline on BMP 02/04
Discontinued
cephalexin 500 mg capsule
500 mg PO Q6H 5 Days Qty: 20 0RF
Discharge Orders:
Discharge Patient (As Directed); Ordered 02/02/25
Ordered By: Anayeli Lentz
Discharge Date and Time
Discharge Date/Time: 02/02/25 13:44
Print Language: [place]IZ[place]
== END 2025-02-02 13:44 | DRG 866 ==
LOC: 4 WEST ACU 15:01
PROVIDERS: Physician Assistant; ADMITTING PHYSICIAN Internal Medicine; ATTENDING PHYSICIAN Internal Medicine; CONSULT PHYSICIAN Orthopaedic Surgery; EMERGENCY PHYSICIAN Student in an Organized Health Care Education/Training Program; FAMILY PHYSICIAN Internal Medicine Geriatric Medicine
PROC: 0SWBXJZ Revision of Synthetic Substitute in Left Hip Joint, External Approach (ICD-10-PCS; 2025-01-31)
DX: J09.X9 Influenza due to identified novel influenza A virus with other manifestations (principal); I50.42 Chronic combined systolic (congestive) and diastolic (congestive) heart failure; L03.116 Cellulitis of left lower limb; T84.021A Dislocation of internal left hip prosthesis, initial encounter; E11.9 Type 2 diabetes mellitus without complications; I11.0 Hypertensive heart disease with heart failure; I25.10 Atherosclerotic heart disease of native coronary artery without angina pectoris; E78.00 Pure hypercholesterolemia, unspecified; I48.0 Paroxysmal atrial fibrillation; J44.89 Other specified chronic obstructive pulmonary disease; W19.XXXA Unspecified fall, initial encounter; K76.0 Fatty (change of) liver, not elsewhere classified; M48.00 Spinal stenosis, site unspecified; N40.1 Benign prostatic hyperplasia with lower urinary tract symptoms; Z96.653 Presence of artificial knee joint, bilateral; Z96.641 Presence of right artificial hip joint; Z87.891 Personal history of nicotine dependence; Z79.899 Other long term (current) drug therapy; Y79.2 Prosthetic and other implants, materials and accessory orthopedic devices associated with adverse incidents; R33.8 Other retention of urine; Z79.01 Long term (current) use of anticoagulants; Z11.52 Encounter for screening for COVID-19
CPT/HCPCS: 73501; 73502; 73700; 76000; 80048; 80053; 82962; 83036; 85025; 85027; 85652; 86140; 87502; 87811; 94640; 96374; 97163; 97167; 99285